=== PATIENT | female | born 1965 | race African-American/Black ===

== ENCOUNTER 2016-03-14 14:46 | Emergency (ER) | payer MEDICAID ==
[~2016-03-14] VITALS: Ht 167.6 cm; Wt 172.4 kg
[~2016-03-14 14:46] MED LIST: ACETAMINOPHEN-1 EAC1 ORAL; ALBUTEROL SULF8.5 GM INH; ALLOPURINOL100 M1 ORAL; AZITHROMYCIN250 MG ORAL; IBUPROFEN600 MG PO; NORCO 5-325 TA1 EACH PO; VALIUM5 MG PO; ZOFRAN ODT4 MG ORAL
[2016-03-14] MEDS ORDERED: DuoNeb 0.5-3(2.5)mg/3ml neb HHN ONE (16:15)
[2016-03-14 16:26] VITALS: BP 121/83
[2016-03-14] MEDS ORDERED: PHENERGAN6.25 MG/5 ORAL (16:37)
[2016-03-14] MEDS ORDERED: ALBUTEROL SULF8.5 GM INH (16:37)
[2016-03-14 17:00] VITALS: BP 125/85
--- NOTE | 2016-03-15 13:01 | Diagnostic Imaging Report ---
Indication: Chest Pain Comparison: 08/24/15 A single view chest radiograph was obtained. Findings: Cardiomediastinal appearance is within normal limits for age. Pulmonary vascularity is appropriate. The diaphragmatic contour is smooth and costophrenic angles are sharp. No pleural effusions are identified. The bones are unremarkable. Impression: No acute findings
--- NOTE | 2016-03-15 14:06 | Emergency Room Report ---
History of Present Illness General Chief Complaint: General Complaint Source: Patient Present Illness [facility] The patient is a 50-year-old female who presented after having increased and dry cough the intermittent nature. The patient reported having a slight amount of blood-tinged after prolonged coughing. Patient had not been having any fever she reported having some fever approximately one-week ago several. She denied sputum production. She had not been vomiting or having any chest pain. Allergies: Coded Allergies: No Known Allergies (Unverified , 08/08/12) Patient History Past Medical History: see triage record Last Menstrual Period: perimenopause Now: No Reviewed Nursing Documentation: PMH: Agreed, PSxH: Agreed Nursing Documentation-PMH Past Medical History: No Stated History Hx Cardiac Problems: Yes - "fluid" near heart Review of Systems All Other Systems: negative except mentioned in HPI Physical Exam Vital Signs Date Time Temp Pulse Resp B/P Pulse Ox O2 Delivery O2 Flow Rate FiO2 03/14/16 15:00 97.9 71 16 121/83 97 Room Air Sp02 EP Interpretation: reviewed, normal General Appearance: no apparent distress, alert, GCS 15, obese Head: atraumatic ENT: normal ENT inspection, hearing grossly normal, normal voice Neck: normal inspection, full range of motion, supple, no bony tend Respiratory: normal inspection, lungs clear, no respiratory distress, no retraction, wheezing Cardiovascular #1: regular rate, rhythm, no edema Gastrointestinal: normal inspection, normal bowel sounds, non tender, soft, no guarding, no hernia Genitourinary: no CVA tenderness Musculoskeletal: normal inspection, back normal, normal range of motion Neurologic: normal inspection, alert, oriented x3, responsive, transmission rebuilder III-XII nml as tested, speech normal Psychiatric: normal inspection, judgement/insight normal, mood/affect normal Skin: normal inspection, normal color, no rash Medical Decision Making Diagnostic Impression: Primary Impression: Bronchitis ER Course Patient presented for cough. Differential diagnosis included but was not limited to bronchitis, pneumonia, pulmonary embolism, pericarditis, asthma, foreign body. A chest x-ray one view interpreted by me showed mild hyperinflation without evident infiltrate.The patient was given a prescription for cough syrup as well for albuterol inhaler. The patient is advised to follow up with primary care doctor in 1-2 days. Patient is advised to return if any worsening condition or if any changes in status that are concerning. Chest X-Ray Diagnostic Results EP Interpretation: Yes Findings: no consolidation, no effusion, no pneumothorax, no acute cardiopulmonary disease Number of Views: 1 Last Vital Signs Date Time Temp Pulse Resp B/P Pulse Ox O2 Delivery O2 Flow Rate FiO2 03/14/16 17:00 97.9 65 18 125/85 98 Room Air Disposition: HOME, SELF-CARE Condition: Stable Scripts Promethazine/Dextromethorphan (Promethazine-Dm Syrup) 473 Ml Syrup 1 TSP ORAL Q4H Y for For Cough, #118 ML 0 Refills Prov: Joe Granados 03/14/16 Albuterol Sulfate* (ALBUTEROL SULFATE MDI*) 8.5 Gm Hfa.aer.ad 2 PUFF INH Q4H Y for wheezing, #1 EA Prov: Joe Granados 03/14/16 Patient Instructions: Acute Bronchitis Joe Granados Mar 15, 2016 14:06
== END 2016-03-14 17:00 | disposition home or self-care (01) ==
LOC: EMR 15:20
DX: J40 Bronchitis, not specified as acute or chronic (principal); R05 Cough; Z78.0 Asymptomatic menopausal state
CPT/HCPCS: 71010; 82962; 94640; 94664; 99283

== ENCOUNTER 2016-06-15 12:47 | Emergency (ER) | payer MEDICAID ==
[~2016-06-15] VITALS: Ht 170.2 cm; Wt 172.4 kg
[~2016-06-15 12:47] MED LIST changes: +PHENERGAN6.25 MG/5 ORAL
[2016-06-15 13:03] VITALS: BP 132/80
[2016-06-15 13:44] LABS: BASOPHILS % (AUTO) 0.7 % (0.0-2.0); EOSINOPHILS % (AUTO) 1.1 % (0.0-3.0); LYMPHOCYTES % (AUTO) 30.8 % (20.0-45.0); MEAN CORPUSCULAR HEMOGLOBIN 28.3 PG (27.0-31.0); MEAN CORPUSCULAR HGB CONC 30.9 G/DL (32.0-36.0); MEAN CORPUSCULAR VOLUME 91 FL (80-99); MEAN PLATELET VOLUME 7.5 FL (6.5-10.1); MONOCYTES % (AUTO) 5.1 % (1.0-10.0); NEUTROPHILS % (AUTO) 62.4 % (45.0-75.0); PLATELET COUNT 253 K/UL (150-450); RED BLOOD COUNT 4.44 M/UL (4.20-5.40); RED CELL DISTRIBUTION WIDTH 13.4 % (11.6-14.8)
[2016-06-15 14:00] LABS: ALANINE AMINOTRANSFERASE 13 U/L (3-33); ALBUMIN/GLOBULIN RATIO 1.2 (1.0-2.7); ANION GAP 15 (5-15); ASPARTATE AMINO TRANSFERASE 11 U/L (5-40); CALCIUM 8.9 mg/dL (8.6-10.2); CARBON DIOXIDE 27 mEQ/L (20-30); CHLORIDE 96 mEQ/L (98-107); CREATININE 0.6 mg/dL (0.5-0.9); GLOMERULAR FILTRATION RATE > 60 mL/min (>60); HEMOLYSIS 0; POTASSIUM 4.3 mEQ/L (3.4-4.9); SODIUM 138 mEQ/L (135-145); TOTAL PROTEIN 6.8 g/dL (6.6-8.7); TROPONIN I < 0.30 ng/mL (<=0.30)
[2016-06-15 14:10] LABS: CKMB 1.6 ng/mL (< 3.8)
[2016-06-15 14:20] VITALS: BP 119/56
[2016-06-15] MEDS ORDERED: PRILOSEC10 M1 ORAL (14:22)
[2016-06-15] MEDS ORDERED: TRUFORM COMPRE1 EAC1 MC (14:40)
[2016-06-15 14:48] VITALS: BP 119/56
--- NOTE | 2016-06-15 15:10 | Emergency Room Report ---
History of Present Illness General Chief Complaint: General Complaint Source: Patient Present Illness HPI 51-year-old female presents to ED for evaluation. Patient referred by PMD to rule out congestive heart failure. Patient has several month history of bilateral ankle swelling and episodes of shortness of breath. Denies shortness of breath at this time. Denies cough. Denies chest pain. Patient is overweight. Denies taking any medications. No aggravating relieving factors. Denies any other associated symptoms Allergies: Coded Allergies: No Known Allergies (Unverified , 08/08/12) Patient History Past Medical History: GERD Past Surgical History: none Pertinent Family History: none Social History: Denies: alcohol use, drug use, smoking Now: No Immunizations: UTD Reviewed Nursing Documentation: PMH: Agreed, PSxH: Agreed Nursing Documentation-PMH Past Medical History: No Stated History Hx Cardiac Problems: Yes - "fluid" near heart Hx Gastrointestinal Problems: Yes - GERD Review of Systems All Other Systems: negative except mentioned in HPI Physical Exam Vital Signs Date Time Temp Pulse Resp B/P Pulse Ox O2 Delivery O2 Flow Rate FiO2 06/15/16 12:55 97.0 64 20 132/80 100 06/15/16 14:20 Room Air Sp02 EP Interpretation: reviewed, normal General Appearance: no apparent distress, alert, GCS 15, non-toxic, obese Head: normocephalic, atraumatic Eyes: bilateral eye PERRL, bilateral eye normal inspection ENT: hearing grossly normal, normal pharynx, no angioedema, normal voice Neck: full range of motion, supple/symm/no masses Respiratory: chest non-tender, lungs clear, normal breath sounds, speaking full sentences Cardiovascular #1: regular rate, rhythm, no edema Cardiovascular #2: 2+ carotid (R), 2+ carotid (L), 2+ radial (R), 2+ radial (L) , 2+ dorsalis pedis (R), 2+ dorsalis pedis (L) Gastrointestinal: normal bowel sounds, non tender, soft, non-distended, no guarding, no rebound Rectal: deferred Genitourinary: normal inspection, no CVA tenderness Musculoskeletal: back normal, gait/station normal, normal range of motion, non- tender, swelling - b/l ankles Neurologic: alert, oriented x3, responsive, motor strength/tone normal, sensory intact, speech normal Psychiatric: judgement/insight normal, memory normal, mood/affect normal, no suicidal/homicidal ideation Reflexes: 3+ bicep (R), 3+ bicep (L), 3+ tricep (R), 3+ tricep (L), 3+ knee (R) , 3+ knee (L) Skin: normal color, no rash, warm/dry, well hydrated Lymphatic: no adenopathy Medical Decision Making Diagnostic Impression: Primary Impression: Pedal edema ER Course Hospital Course 51-year-old female presents to ED for bilateral ankle swelling and episodes of shortness of breath Differential diagnoses include: CHF, VA/unstable angina, arrythmia Clinical course Patient placed on stretcher. After initial history and physical I ordered labs , EKG, chest x-ray. labs reviewed- all electrolytes normal, troponins negative, no leukocytosis, hemoglobin/hematocrit stable, BNP ok EKG - NSR, no acute process Chest x-ray- borderline cardiomegaly, no rib fracture, no pneumothorax, no acute process patient states the swelling has resolved since evaluation. likely pedal edema. Patient can be safely discharged to home pending outpatient followup. I. I feel this is a highly complex case requiring extensive working including EKG/Rhythm strip, Xray/CT/US, Blood/urine lab work, repeat exams while in ED, and administration of strong opiates/narcotics for pain control, admission to hospital or close patient follow up. Diagnosis - pedal edema Stable and discharged to home with Rx compression stockings. Instructed to followup with PMD. Return to ED if symptoms recur or worsen Labs Test 06/15/16 13:35 White Blood Count 6.0 K/UL (4.8-10.8) Red Blood Count 4.44 M/UL (4.20-5.40) Hemoglobin 12.6 G/DL (12.0-16.0) Hematocrit 40.6 % (37.0-47.0) Mean Corpuscular Volume 91 FL (80-99) Mean Corpuscular Hemoglobin 28.3 PG (27.0-31.0) Mean Corpuscular Hemoglobin Concent 30.9 G/DL (32.0-36.0) Red Cell Distribution Width 13.4 % (11.6-14.8) Platelet Count 253 K/UL (150-450) Mean Platelet Volume 7.5 FL (6.5-10.1) Neutrophils (%) (Auto) 62.4 % (45.0-75.0) Lymphocytes (%) (Auto) 30.8 % (20.0-45.0) Monocytes (%) (Auto) 5.1 % (1.0-10.0) Eosinophils (%) (Auto) 1.1 % (0.0-3.0) Basophils (%) (Auto) 0.7 % (0.0-2.0) Sodium Level 138 mEQ/L (135-145) Potassium Level 4.3 mEQ/L (3.4-4.9) Chloride Level 96 mEQ/L (98-107) Carbon Dioxide Level 27 mEQ/L (20-30) Anion Gap 15 (5-15) Blood Urea Nitrogen 11 mg/dL (7-23) Creatinine 0.6 mg/dL (0.5-0.9) Estimat Glomerular Filtration Rate > 60 mL/min (>60) Glucose Level 102 mg/dL (74-106) Calcium Level 8.9 mg/dL (8.6-10.2) Total Bilirubin 0.3 mg/dL (0.0-1.2) Aspartate Amino Transf (AST/SGOT) 11 U/L (5-40) Alanine Aminotransferase (ALT/SGPT) 13 U/L (3-33) Alkaline Phosphatase 66 U/L (35-104) Total Creatine Kinase 141 U/L (26-140) Creatine Kinase MB 1.6 ng/mL (< 3.8) Creatine Kinase MB Relative Index 1.1 Troponin I < 0.30 ng/mL (<=0.30) Pro-B-Type Natriuretic Peptide 79 pg/mL (0-125) Total Protein 6.8 g/dL (6.6-8.7) Albumin 3.8 g/dL (3.5-5.2) Globulin 3.0 g/dL Albumin/Globulin Ratio 1.2 (1.0-2.7) EKG Diagnostic Results Rate: normal Rhythm: NSR ST Segments: no acute changes ASA given to the pt in ED: No Rhythm Strip Diag. Results EP Interpretation: yes Rhythm: NSR, no PVC's, no ectopy Chest X-Ray Diagnostic Results EP Interpretation: Yes Findings: no consolidation, no effusion, no pneumothorax, no acute cardiopulmonary disease Number of Views: 1 Last Vital Signs Date Time Temp Pulse Resp B/P Pulse Ox O2 Delivery O2 Flow Rate FiO2 06/15/16 14:48 97.0 66 18 119/56 100 Room Air Status: improved Disposition: HOME, SELF-CARE Condition: Stable Scripts Comp.stocking,Knee,Regular,Med (Truform Compression Stocking) 1 Each Each 1 EACH , #2 Prov: JOHN MARTINES M.D. 06/15/16 Patient Instructions: Peripheral Edema JOHN MARTINES M.D. Jun 15, 2016 15:10
--- NOTE | 2016-06-15 15:36 | Diagnostic Imaging Report ---
Indication: SOB Technique: One view of the chest Comparison: March 14, 2016 Findings: The heart is borderline enlarged. Lungs and pleural spaces are clear. There is no significant change Impression: Borderline cardiomegaly. No acute process
--- NOTE | 2016-06-16 20:26 | Cardiology Report ---
APPROVED REPORT EKG Measurement Heart [id number] Normal sinus rhythm Normal ECG
== END 2016-06-15 14:50 | disposition home or self-care (01) ==
LOC: EMR 13:06
DX: R60.0 Localized edema (principal); R06.02 Shortness of breath; K21.9 Gastro-esophageal reflux disease without esophagitis
CPT/HCPCS: 36415; 71010; 80053; 82550; 82553; 83880; 84484; 85025; 93005; 99283

== ENCOUNTER 2016-09-24 09:14 | Emergency (ER) | payer MEDICAID ==
[~2016-09-24] VITALS: Ht 170.2 cm; Wt 178.3 kg
[~2016-09-24 09:14] MED LIST changes: +PRILOSEC10 M1 ORAL; +TRUFORM COMPRE1 EAC1 MC
--- NOTE | 2016-09-24 09:46 | Emergency Room Report ---
History of Present Illness General Chief Complaint: Dyspnea/Respdistress Source: Patient Present Illness HPI Patient is a 51-year-old female presented having acute onset of left-sided chest pain. The patient was having worsening symptoms with a left decubitus position. Patient had no exertional component. She reports having no pain with deep breath. She denies any leg pain or swelling. She denies any abdominal pain. She stated she was nauseated last night. She had not been vomiting or having diarrhea. She denied black or bloody stools.She denied any cough or fever Allergies: Coded Allergies: No Known Allergies (Unverified , 08/08/12) Patient History Past Medical History: see triage record Now: No Reviewed Nursing Documentation: PMH: Agreed, PSxH: Agreed Nursing Documentation-PMH Hx Cardiac Problems: Yes - "fluid" near heart Hx Gastrointestinal Problems: Yes - GERD Review of Systems All Other Systems: negative except mentioned in HPI Physical Exam Vital Signs Date Time Temp Pulse Resp B/P Pulse Ox O2 Delivery O2 Flow Rate FiO2 09/24/16 09:16 97.3 78 19 115/78 98 Room Air General Appearance: well appearing, no apparent distress, alert, GCS 15, obese Head: normocephalic, atraumatic ENT: hearing grossly normal, normal voice Neck: full range of motion, supple Respiratory: no respiratory distress, speaking full sentences Cardiovascular #1: normal inspection, regular rate, rhythm, no edema Gastrointestinal: normal inspection, normal bowel sounds, soft, no mass Musculoskeletal: normal inspection, back normal, digits/nails normal, no calf tenderness Neurologic: normal inspection, alert, oriented x3, responsive, directory operator III-XII nml as tested, normal gait Psychiatric: mood/affect normal Skin: normal inspection, normal color, no rash Medical Decision Making Diagnostic Impression: Primary Impression: GERD with esophagitis ER Course Patient presented for chest pain. Differential diagnosis included but was not limited to acute coronary syndrome, pulmonary embolism, pneumonia, aortic dissection, shingles, pneumothorax, aortic dissection, esophageal rupture, pericarditis. The patient's symptoms are consistent with esophageal reflux. Patient was given Mylanta. Chest x-ray was ordered to evaluate for possible pulmonary disease.Chest x-ray one view interpreted by me showed normal cardiac size without evident infiltrate. The patient appears to have improvement in symptoms of with Mylanta. The patient is advised to return she began feeling any worse. The patient's symptoms are not consistent with cardiac or pulmonary etiology. This appears to be related to gastroesophageal reflux disease. Patient was given prescription for acid blockers. EKG Diagnostic Results Rate: normal Rhythm: NSR - 72 ST Segments: no acute changes Last Vital Signs Date Time Temp Pulse Resp B/P Pulse Ox O2 Delivery O2 Flow Rate FiO2 09/24/16 09:16 97.3 78 19 115/78 98 Room Air Status: improved Disposition: HOME, SELF-CARE Condition: Stable Scripts Omeprazole (OMEPRAZOLE) 20 Mg Tablet.dr 20 MG ORAL DAILY, #30 TAB Prov: Joe Granados 09/24/16 Omeprazole Magnesium (PRILOSEC) 10 Mg Suspdr.pkt 10 MG ORAL DAILY, #30 PACKET Prov: Joe Granados 09/24/16 Joe Granados Sep 24, 2016 09:46
[2016-09-24 10:03] VITALS: BP 107/74
[2016-09-24] MEDS ORDERED: PRILOSEC10 M1 ORAL (10:30)
[2016-09-24 10:40] VITALS: BP 119/68
[2016-09-24] MEDS ORDERED: OMEPRAZOLE20 M3 ORAL (10:52)
--- NOTE | 2016-09-24 10:55 | Diagnostic Imaging Report ---
Indication: Chest pain Technique: XRAY CHEST 1 V Comparison: 06/15/16 Findings: The cardiomediastinal silhouette is within normal limits. There is no focal consolidation, pneumothorax or pleural effusion. Osseous structures demonstrate no acute abnormality. Impression: No acute cardiopulmonary disease.
== END 2016-09-24 10:40 | disposition home or self-care (01) ==
LOC: EMR 09:40
DX: K21.0 Gastro-esophageal reflux disease with esophagitis (principal)
CPT/HCPCS: 71010; 93005; 99284

== ENCOUNTER 2017-05-03 11:17 | Emergency (ER) | payer MEDICAID ==
[~2017-05-03] VITALS: Ht 172.7 cm; Wt 165.6 kg
[~2017-05-03 11:17] MED LIST changes: +OMEPRAZOLE20 M3 ORAL
[2017-05-03 11:21] VITALS: BP 119/65
[2017-05-03] MEDS ORDERED: Albuterol/Ipratropium 3ml neb HHN ONE (12:00)
[2017-05-03] MEDS ORDERED: ZITHROMAX250 MG ORAL (12:23)
[2017-05-03] MEDS ORDERED: PROMETHAZINE-D118 ML ORAL (12:23)
--- NOTE | 2017-05-03 12:25 | Diagnostic Imaging Report ---
Indication: Shortness of breath Technique: XRAY Chest 1v Comparison: 09/24/2016 Findings: Limited exam due to underpenetration, likely related to patient's body habitus. Heart size and mediastinal contours are stable. There is mild cardiomegaly. There is no focal airspace consolidation, pleural effusion or pneumothorax. No acute osseous abnormality appreciated. Impression: Limited exam due to underpenetration. No radiographic evidence of acute cardiopulmonary disease. Cardiomegaly.
[2017-05-03 12:50] VITALS: BP 114/72
[2017-05-03] MEDS ORDERED: AZITHROMYCIN250 MG ORAL (13:00)
--- NOTE | 2017-05-05 14:45 | Emergency Room Report ---
History of Present Illness General Chief Complaint: Sore Throat Source: Patient Present Illness HPI Patient 51 female who presented after increased cough for several weeks. The patient any chest pain. She denied for shortness of breath. The patient had nonproductive cough.She reports having associated sore throat. Allergies: Coded Allergies: No Known Allergies (Unverified , 08/08/12) Patient History Past Medical History: see triage record Last Menstrual Period: 03/20 Now: No : 5 Para: 2 Reviewed Nursing Documentation: PMH: Agreed, PSxH: Agreed Nursing Documentation-PMH Hx Cardiac Problems: Yes - "fluid" near heart Hx Gastrointestinal Problems: Yes - GERD Review of Systems All Other Systems: negative except mentioned in HPI Physical Exam Vital Signs Date Time Temp Pulse Resp B/P (MAP) Pulse Ox O2 Delivery O2 Flow Rate FiO2 05/03/17 11:21 97.5 75 18 119/65 97 Room Air 97.5 05/03/17 12:20 21 General Appearance: well appearing, no apparent distress, alert, GCS 15 Head: normocephalic, atraumatic ENT: hearing grossly normal, normal voice Neck: full range of motion, supple Respiratory: no respiratory distress, speaking full sentences, wheezing Cardiovascular #1: normal peripheral pulses, regular rate, rhythm Musculoskeletal: normal inspection, back normal, no calf tenderness Neurologic: normal gait Psychiatric: mood/affect normal Skin: no rash Medical Decision Making Diagnostic Impression: Primary Impression: Bronchitis ER Course Patient presented for cough. Differential diagnosis included but was not limited to bronchitis, pneumonia, pulmonary embolism, pericarditis, asthma, foreign body. Patient has a benign exam and does not appear to require any further imaging or laboratory testing at this time. Patient given breathing treatment with improvement in her symptoms. The patient is advised to follow up with primary care doctor in 1-2 days. Patient is advised to return if any worsening condition or if any changes in status that are concerning. This report is dictated with [employer] package winder software which may occasionally lead to discrepancies related to use of this software. Last Vital Signs Date Time Temp Pulse Resp B/P (MAP) Pulse Ox O2 Delivery O2 Flow Rate FiO2 05/03/17 12:50 97.3 77 16 114/72 97 Room Air 05/03/17 12:30 21 Status: improved Disposition: HOME, SELF-CARE Condition: Improved Scripts Azithromycin* (ZITHROMAX*) 250 Mg Tablet 250 MG ORAL DAILY, #6 TAB 0 Refills Take two tablets by mouth today, then take one tablet by mouth daily for four days Prov: Joe Granados 05/03/17 D-Methorphan Hb/Prometh Hcl* (PROMETHAZINE-DM SYRUP*) 118 Ml Syrup 5 ML ORAL Q4H Y for For Cough, #120 ML 0 Refills Prov: Joe Granados 05/03/17 Referrals: LEBRON GREWAL,REFERRING (PCP) Patient Instructions: Acute Bronchitis Joe Granados May 05, 2017 14:45
== END 2017-05-03 12:50 | disposition home or self-care (01) ==
LOC: EMR 11:35
DX: J40 Bronchitis, not specified as acute or chronic (principal); K21.9 Gastro-esophageal reflux disease without esophagitis
CPT/HCPCS: 71045; 94640; 99283; J7620

== ENCOUNTER 2017-05-30 11:31 | Emergency (ER) | payer MEDICAID ==
[~2017-05-30] VITALS: Ht 167.6 cm; Wt 161.9 kg
[~2017-05-30 11:31] MED LIST changes: +PROMETHAZINE-D118 ML ORAL; +ZITHROMAX250 MG ORAL
[2017-05-30] MEDS ORDERED: IBUPROFEN600 MG ORAL (11:58)
[2017-05-30] MEDS ORDERED: ROBAXIN-750750 MG PO (11:58)
[2017-05-30] MEDS ORDERED: LIDOCAINE700 M1 TP (11:58)
[2017-05-30] MEDS ORDERED: Ketorolac 30mg Inj IM ONE (12:00)
[2017-05-30] MEDS ORDERED: Methocarbamol 750mg tab ORAL ONE (12:00)
--- NOTE | 2017-05-30 12:02 | Emergency Room Report ---
History of Present Illness General Chief Complaint: Back Pain-No Injury Source: Patient Present Illness HPI 52-year-old female, chronic back pain, asthma, p/w back pain 6 months. Patient states pain is in left upper back and left shoulder. Patient states that she uses her left shoulder a lot for work, Movement worsens pain. There are no alleviating factors. Patient has experienced this similar pain in the past. Denies trauma. Denies extremity weakness/numbness, no bowel/bladder retention or incontinence, saddle anesthesia. Denies fever, chills, abdominal pain, n/v, dysuria/hematuria. Allergies: Coded Allergies: No Known Allergies (Unverified , 08/08/12) Patient History Past Medical History: see triage record Past Surgical History: none Pertinent Family History: none Last Menstrual Period: 3-8 Now: No Reviewed Nursing Documentation: PMH: Agreed, PSxH: Agreed Nursing Documentation-PMH Hx Cardiac Problems: Yes - "fluid" near heart Hx Gastrointestinal Problems: Yes - GERD Review of Systems All Other Systems: negative except mentioned in HPI Physical Exam Vital Signs Date Time Temp Pulse Resp B/P (MAP) Pulse Ox O2 Delivery O2 Flow Rate FiO2 05/30/17 11:38 97.5 65 18 115/68 97 Room Air 97.5 Sp02 EP Interpretation: reviewed, normal General Appearance: normal inspection, well appearing, no apparent distress, alert, GCS 15, non-toxic Head: normocephalic, atraumatic Eyes: bilateral eye normal inspection, bilateral eye PERRL, bilateral eye EOMI ENT: normal ENT inspection, normal pharynx, normal voice, moist mucus membranes Neck: normal inspection, full range of motion, supple Respiratory: normal inspection, lungs clear, normal breath sounds, no respiratory distress, no retraction, no wheezing, speaking full sentences, chest symmetrical Cardiovascular #1: normal inspection, regular rate, rhythm, no edema, normal capillary refill Cardiovascular #2: 2+ radial (R), 2+ radial (L) Gastrointestinal: normal inspection, non tender, soft, non-distended, no guarding Musculoskeletal: other - Soreness/tenderness along left deltoid musculature, full range of motion all extremities, paraspinal upper thoracic tenderness, no midline tenderness, full range of motion Neurologic: normal inspection, alert, oriented x3, responsive, motor strength/ tone normal, sensory intact, normal gait, speech normal Psychiatric: normal inspection, judgement/insight normal, memory normal Skin: normal inspection, normal color, no rash, warm/dry, well hydrated, normal turgor Medical Decision Making Diagnostic Impression: Primary Impression: Chronic back pain greater than 3 months duration ER Course 52-year-old female p/w back pain DDX: Likely musculoskeletal back pain vs. muscular strain Lumbar fracture is unlikely given patients age, no midline tenderness, no history of trauma, and that patient is ambulatory. Therefore, at this time no imaging is indicated Serious diagnoses such as cord compression, epidural abscess is unlikely in this patient given the clinical scenario and abscess of neurological symptoms or findings. Patient appears nontoxic. Plan: Toradol, robaxin ER course: Patient has remained nontoxic appearing and ambulatory in the ED. Pain improved w/ medications Disposition: Patient will be discharged to home with prescription of motrin and robaxin. And lidocaine patches Patient cautioned of the effects of robaxin including possible impairment of physical or mental abilities. Patient was instructed to refrain from operating machinery or driving. Patient is also cautioned on the GI effects of motrin and to take sparingly. Patient verbalized understanding. Strict precautions discussed with patient on when to emergently return to the ED which includes severe/worsening back pain, weakness/numbness, urinary retention/incontinence, fever or chills, which may indicate severe illness. Patient is to follow up with their PMD within 5 days. Patient agrees with plan. Please note that this Emergency Department Report was dictated using [employer] marketing manager technology software, occasionally this can lead to erroneous entry secondary to interpretation by the dictation equipment. Last Vital Signs Date Time Temp Pulse Resp B/P (MAP) Pulse Ox O2 Delivery O2 Flow Rate FiO2 05/30/17 11:38 97.5 65 18 115/68 97 Room Air 97.5 Disposition: HOME, SELF-CARE Condition: Improved Scripts Ibuprofen* (MOTRIN*) 600 Mg Tablet 600 MG ORAL Q8H Y for For Pain, #30 TAB 0 Refills Prov: Retino,Clairose M.D. 05/30/17 Lidocaine (Lidocaine) 1 Each Adh..patch 700 MG TP EVERY 12 HOURS, #30 PATCH Prov: Retino,Clairose M.D. 05/30/17 Methocarbamol* (ROBAXIN-750*) 750 Mg Tablet 750 MG PO QID, #28 TAB 0 Refills Prov: Retino,Clairose M.D. 05/30/17 Patient Instructions: Back Pain, Adult Chance Mesa M.D. May 30, 2017 12:02
[2017-05-30 12:12] VITALS: BP 115/68
[2017-05-30 12:28] VITALS: BP 105/68
== END 2017-05-30 12:30 | disposition home or self-care (01) ==
LOC: EMR 11:52
DX: M54.6 Pain in thoracic spine (principal); G89.29 Other chronic pain
CPT/HCPCS: 96372; 99284; J1885

== ENCOUNTER 2017-07-16 11:06 | Emergency (ER) | payer MEDICAID ==
[~2017-07-16] VITALS: Ht 170.2 cm; Wt 163.3 kg
[~2017-07-16 11:06] MED LIST changes: +IBUPROFEN600 MG ORAL; +LIDOCAINE700 M1 TP; +ROBAXIN-750750 MG PO
[2017-07-16 11:27] VITALS: BP 120/51
--- NOTE | 2017-07-16 11:32 | Emergency Room Report ---
History of Present Illness General Chief Complaint: General Complaint Source: Patient Present Illness HPI Patient presents with complaints that she saw blood in her stool yesterday and today Denies any weakness or dizziness Denies any associated abdominal pain with this denies any rectal pain she essentially saw the blood in the stool in the toilet Denies any flank pain denies any vomiting or diarrhea denies any recent constipation Allergies: Coded Allergies: No Known Allergies (Unverified , 08/08/12) Patient History Past Medical History: see triage record Pertinent Family History: none Last Menstrual Period: June 18 Now: No Reviewed Nursing Documentation: PMH: Agreed; PSxH: Agreed Nursing Documentation-PMH Past Medical History: No Stated History Hx Cardiac Problems: Yes - "fluid" near heart Hx Asthma: Yes Hx Gastrointestinal Problems: Yes - GERD Review of Systems All Other Systems: negative except mentioned in HPI Physical Exam Vital Signs Date Time Temp Pulse Resp B/P (MAP) Pulse Ox O2 Delivery O2 Flow Rate FiO2 07/16/17 11:12 97.8 77 16 118/63 97 Room Air 97.9 Sp02 EP Interpretation: reviewed, normal General Appearance: well appearing, no apparent distress Head: normocephalic, atraumatic Eyes: bilateral eye PERRL, bilateral eye EOMI ENT: hearing grossly normal, normal pharynx, TMs + canals normal, uvula midline Neck: full range of motion, supple, no meningismus, no bony tend Respiratory: lungs clear, normal breath sounds, no rhonchi, no respiratory distress, no retraction, no accessory muscle use Cardiovascular #1: normal peripheral pulses, regular rate, rhythm, no edema, no gallop, no JVD, no murmur Gastrointestinal: normal bowel sounds, non tender, soft, no mass, no organomegaly, non-distended, no guarding, no hernia, no pulsatile mass, no rebound Genitourinary: no CVA tenderness Musculoskeletal: normal inspection Neurologic: oriented x3, responsive, check services clerk III-XII nml as tested, motor strength/ tone normal, sensory intact Psychiatric: mood/affect normal Skin: normal color, no rash, warm/dry, palpation normal Lymphatic: normal inspection, no adenopathy Medical Decision Making Diagnostic Impression: Primary Impression: Blood in stool ER Course Multiple differentials considered including but not limited to diverticulosis gastrointestinal hemorrhage, hemorrhoids Patient's blood work at this time shows stable hemoglobin Patient does not have any active signs of bleeding and is otherwise hemodynamically stable for close outpatient follow-up Labs Test 07/16/17 11:35 White Blood Count 5.6 K/UL (4.8-10.8) Red Blood Count 4.49 M/UL (4.20-5.40) Hemoglobin 13.2 G/DL (12.0-16.0) Hematocrit 40.0 % (37.0-47.0) Mean Corpuscular Volume 89 FL (80-99) Mean Corpuscular Hemoglobin 29.4 PG (27.0-31.0) Mean Corpuscular Hemoglobin Concent 33.0 G/DL (32.0-36.0) Red Cell Distribution Width 12.7 % (11.6-14.8) Platelet Count 276 K/UL (150-450) Mean Platelet Volume 7.8 FL (6.5-10.1) Neutrophils (%) (Auto) 55.3 % (45.0-75.0) Lymphocytes (%) (Auto) 36.5 % (20.0-45.0) Monocytes (%) (Auto) 5.1 % (1.0-10.0) Eosinophils (%) (Auto) 1.9 % (0.0-3.0) Basophils (%) (Auto) 1.2 % (0.0-2.0) Sodium Level 140 MMOL/L (136-145) Potassium Level 5.0 MMOL/L (3.5-5.1) Chloride Level 106 MMOL/L (98-107) Carbon Dioxide Level 28 MMOL/L (21-32) Anion Gap 6 mmol/L (5-15) Blood Urea Nitrogen 11 mg/dL (7-18) Creatinine 0.7 MG/DL (0.55-1.30) Estimat Glomerular Filtration Rate > 60 mL/min (>60) Glucose Level 102 MG/DL (74-106) Calcium Level 8.5 MG/DL (8.5-10.1) Last Vital Signs Date Time Temp Pulse Resp B/P (MAP) Pulse Ox O2 Delivery O2 Flow Rate FiO2 07/16/17 11:27 97.9 78 20 120/51 99 Room Air 97.9 Status: improved Disposition: HOME, SELF-CARE Condition: Improved Scripts Famotidine (PEPCID AC) 20 Mg Tablet 20 MG PO DAILY, #12 TAB Prov: Elizabeth Brooks DO 07/16/17 Additional Instructions: Patient is provided with the discharge instructions notified to follow up with primary doctor in the next 2-3 days otherwise return to the er with any worsening symptoms. Please note that this report is being documented using [employer]on technology. This can lead to erroneous entry secondary to incorrect interpretation by the dictating instrument. Elizabeth Brooks DO July 16, 2017 11:32
[2017-07-16 11:46] LABS: BASOPHILS % (AUTO) 1.2 % (0.0-2.0); EOSINOPHILS % (AUTO) 1.9 % (0.0-3.0); HEMOGLOBIN 13.2 G/DL (12.0-16.0); LYMPHOCYTES % (AUTO) 36.5 % (20.0-45.0); MEAN CORPUSCULAR VOLUME 89 FL (80-99); MONOCYTES % (AUTO) 5.1 % (1.0-10.0); NEUTROPHILS % (AUTO) 55.3 % (45.0-75.0); PLATELET COUNT 276 K/UL (150-450); RED BLOOD COUNT 4.49 M/UL (4.20-5.40); RED CELL DISTRIBUTION WIDTH 12.7 % (11.6-14.8); WHITE BLOOD COUNT 5.6 K/UL (4.8-10.8)
[2017-07-16 11:57] LABS: ANION GAP 6 mmol/L (5-15); BLOOD UREA NITROGEN 11 mg/dL (7-18); CALCIUM 8.5 MG/DL (8.5-10.1); CARBON DIOXIDE 28 MMOL/L (21-32); CHLORIDE 106 MMOL/L (98-107); CREATININE 0.7 MG/DL (0.55-1.30); SODIUM 140 MMOL/L (136-145)
[2017-07-16] MEDS ORDERED: PEPCID AC20 M2 PO (13:24)
[2017-07-16 13:45] VITALS: BP 109/74
== END 2017-07-16 13:45 | disposition home or self-care (01) ==
LOC: EMR 11:47
DX: K92.1 Melena (principal); K21.9 Gastro-esophageal reflux disease without esophagitis; J45.909 Unspecified asthma, uncomplicated
CPT/HCPCS: 36415; 80048; 85025; 99283

== ENCOUNTER 2017-12-21 17:26 | Emergency (ER) | payer MEDICAID ==
[~2017-12-21] VITALS: Ht 172.7 cm; Wt 156.5 kg
[~2017-12-21 17:26] MED LIST changes: +PEPCID AC20 M2 PO
[2017-12-21] MEDS ORDERED: MELOXICAM15 MG PO (17:59)
[2017-12-21] MEDS ORDERED: Ketorolac 30mg Inj IM ONE (18:00)
--- NOTE | 2017-12-21 18:03 | Emergency Room Report ---
History of Present Illness General Chief Complaint: General Complaint Source: Patient Present Illness HPI Patient 52-year-old female who presented after increased bilateral knee pain. The patient reports having prior episodes of pain to her other joints. Patient prior history of osteoporosis. She is currently taking vitamin D. The she denies any fever. She denies any recent trauma. The patient reports having increased pain with movements. She had prior history of gout and is currently taking allopurinol Allergies: Coded Allergies: No Known Allergies (Unverified , 08/08/12) Patient History Reviewed Nursing Documentation: PMH: Agreed; PSxH: Agreed Nursing Documentation-PMH Past Medical History: No History, Except For Hx Cardiac Problems: No - Gout, Osteoporosis Hx Hypertension: No Hx Pacemaker: No Hx Asthma: Yes Hx COPD: No Hx Diabetes: No Hx Cancer: No Hx Gastrointestinal Problems: Yes - GERD Hx Dialysis: No History Of Psychiatric Problem: Yes - Anxiety Hx Neurological Problems: No Hx Cerebrovascular Accident: No Hx Seizures: No Review of Systems All Other Systems: negative except mentioned in HPI Physical Exam Vital Signs Date Time Temp Pulse Resp B/P (MAP) Pulse Ox O2 Delivery O2 Flow Rate FiO2 12/21/17 17:34 98.9 74 16 128/85 97 Room Air 99.0 General Appearance: well appearing, no apparent distress, alert, GCS 15, obese Head: normocephalic, atraumatic ENT: hearing grossly normal, normal voice Neck: full range of motion, supple Respiratory: no respiratory distress, speaking full sentences Cardiovascular #1: normal inspection, regular rate, rhythm Gastrointestinal: normal inspection Musculoskeletal: normal inspection, back normal, digits/nails normal, normal range of motion, no calf tenderness Neurologic: normal inspection, alert, oriented x3, responsive, social contact worker III-XII nml as tested, normal gait Psychiatric: mood/affect normal Skin: no rash Medical Decision Making Diagnostic Impression: Primary Impression: Arthritis ER Course Patient presented for knee pain. Differential diagnosis included was not limited to popliteal aneurysm, arthritis, dislocation, ligamentous injury, septic joint among others. Patient has a benign exam and does not appear to require any further imaging or laboratory testing at this time. The patient appears to have exacerbation of chronic arthritis. The patient was given Toradol intramuscularly. She is given prescription for meloxicam. She is advised follow-up with her primary care physician for reevaluation.The patient is advised to follow up with primary care doctor in 2-3 days. Patient is advised to return if any worsening condition or if any changes in status that are concerning. This report is dictated with Pley teacher vocal software which may occasionally lead to discrepancies related to use of this software. Last Vital Signs Date Time Temp Pulse Resp B/P (MAP) Pulse Ox O2 Delivery O2 Flow Rate FiO2 12/21/17 17:34 98.9 74 16 128/85 97 Room Air 99.0 Status: improved Disposition: HOME, SELF-CARE Condition: Stable Scripts Meloxicam* (MELOXICAM*) 15 Mg Tablet 15 MG PO DAILY, #30 TAB Prov: Joe Granados MD 12/21/17 Patient Instructions: Arthritis Joe Granados MD Dec 21, 2017 18:03
[2017-12-21 18:09] VITALS: BP_SYST 128; BP_SYST 131; BP_DIAS 79; BP_DIAS 85
== END 2017-12-21 18:10 | disposition home or self-care (01) ==
LOC: EMR 18:10
DX: M17.0 Bilateral primary osteoarthritis of knee (principal); M81.0 Age-related osteoporosis without current pathological fracture; M25.562 Pain in left knee; M25.561 Pain in right knee; K21.9 Gastro-esophageal reflux disease without esophagitis; F41.9 Anxiety disorder, unspecified; Z79.899 Other long term (current) drug therapy
CPT/HCPCS: 96372; 99284; J1885

== ENCOUNTER 2018-04-06 11:51 | Emergency (ER) | payer MEDICAID ==
[~2018-04-06] VITALS: Ht 170.2 cm; Wt 169.2 kg
[~2018-04-06 11:51] MED LIST changes: +MELOXICAM15 MG PO
--- NOTE | 2018-04-06 12:20 | Emergency Room Report ---
History of Present Illness General Chief Complaint: Dizziness Source: Patient (Spencer Griffith) Present Illness HPI 52-year-old female patient presents the ER complaining of dizziness times a few hours. Reports she went to stand up earlier today and she felt dizzy when she stood up. Denies symptoms currently in the ER. Reports she can feel symptoms after getting out of the shower. Reports nausea during this time. Denies vomiting. Denies travel outside the country. Denies diarrhea. Denies history of heart disease or CHF. Denies history of stroke. Denies chest pain, shortness of breath, abdominal pain. Denies photophobia or phonophobia. Denies other aggravating or relieving factors. Denies history of syncopal episodes. Denies calf pain. Reports symptoms began after taking Meloxicam this morning for her arthritis. Denies history of similar symptoms in the past. (Spencer Griffith) Allergies: Coded Allergies: No Known Allergies (Unverified , 08/08/12) Patient History Past Medical History: see triage record Now: No Reviewed Nursing Documentation: PMH: Agreed; PSxH: Agreed (Spencer Griffith) Nursing Documentation-PMH Hx Cardiac Problems: No - Gout, Osteoporosis Hx Hypertension: No Hx Pacemaker: No Hx Asthma: Yes Hx COPD: No Hx Diabetes: No Hx Cancer: No Hx Gastrointestinal Problems: Yes - GERD Hx Dialysis: No Hx Neurological Problems: No Hx Cerebrovascular Accident: No Hx Seizures: No (Spencer Griffith) Review of Systems All Other Systems: negative except mentioned in HPI (Spencer Griffith) Physical Exam Vital Signs Date Time Temp Pulse Resp B/P (MAP) Pulse Ox O2 Delivery O2 Flow Rate FiO2 04/06/18 12:00 98.2 70 16 116/65 98 Room Air Sp02 EP Interpretation: reviewed, normal General Appearance: well appearing, no apparent distress, alert, GCS 15, non- toxic Head: normocephalic, atraumatic Eyes: bilateral eye normal inspection, bilateral eye PERRL ENT: hearing grossly normal, normal pharynx, no angioedema, normal voice, uvula midline, moist mucus membranes Neck: full range of motion Respiratory: lungs clear, normal breath sounds, no rhonchi, no respiratory distress, no accessory muscle use, no wheezing, speaking full sentences Cardiovascular #1: regular rate, rhythm, no edema, normal capillary refill Cardiovascular #2: 2+ radial (R), 2+ radial (L) Musculoskeletal: back normal, digits/nails normal, gait/station normal, normal range of motion, non-tender, no calf tenderness, Roseann's Sign negative Neurologic: alert, oriented x3, responsive, regional account manager III-XII nml as tested, motor strength/tone normal, sensory intact, cerebellar normal, normal gait, speech normal Psychiatric: mood/affect normal Skin: no rash, normal turgor (Spencer Griffith) Medical Decision Making PA Attestation Dr. Cameron is my supervising Physician whom patient management has been discussed with. (Spencer Griffith) Diagnostic Impression: Primary Impression: Dizziness Additional Impression: Yeast infection ER Course Pt. presents to the ED c/o dizziness. Ddx considered but are not limited to orthostatic dizziness, vertigo, hypoglycemia, electrolyte abnormality, arrhythmia, medication side effect, anemia, . No signs or symptoms associated with central vertigo, cranial nerves intact as tested, no focal neuro deficits, patient denies symptoms currently, does not require CT head. Vital signs: are WNL, pt. is afebrile ER COURSE: Physical exam benign. CXR shows no signs of acute disease. EKG shows no ST elevation or afib, low suspicion for TN. Patient denies chest pain or SOB, does not require cardiac workup at this time. CBC and CMP unremarkable, no signs of anemia, H&H WNL, no electrolyte or glucose abnormalities Lipase WNL UA shows positive yeast, will treat with fluconazole. Urine negative All laboratory testing and imaging at this time appear within normal limits, signs and symptoms consistent with possible orthostatic dizziness. Advised patient to drink plenty of fluids. Follow-up with primary care provider for further testing and treatment. Will provide patient with meclizine at discharge. ER precautions given. DISCHARGE: Rx provided for Meclizine. At this time pt is stable for d/c to home. Patient is resting comfortably, in no acute distress, nontoxic appearing, talking without difficulty. Patient to take medications as instructed Will provide with patient care instructions and any necessary prescriptions. Care plan and follow-up instructions provided. Patient instructed to follow-up with primary care provider in 3 - 5 days. Patient questions asked and answered. Patient reports understanding and agreement to treatment plan. ER precautions given. Patient instructed to return to ER immediately for any new or worsening of symptoms including but not limited to increasing SOB, persistent fever, chest pain, intractable vomiting. - Please note that this Emergency Department Report was dictated using Ripple TVresistor inspector technology software, occasionally this can lead to erroneous entry secondary to interpretation by the dictation equipment. Labs Test 04/06/18 12:45 04/06/18 12:55 White Blood Count 4.2 K/UL (4.8-10.8) Red Blood Count 4.56 M/UL (4.20-5.40) Hemoglobin 13.3 G/DL (12.0-16.0) Hematocrit 41.2 % (37.0-47.0) Mean Corpuscular Volume 91 FL (80-99) Mean Corpuscular Hemoglobin 29.2 PG (27.0-31.0) Mean Corpuscular Hemoglobin Concent 32.2 G/DL (32.0-36.0) Red Cell Distribution Width 13.0 % (11.6-14.8) Platelet Count 200 K/UL (150-450) Mean Platelet Volume 8.4 FL (6.5-10.1) Neutrophils (%) (Auto) 64.6 % (45.0-75.0) Lymphocytes (%) (Auto) 27.9 % (20.0-45.0) Monocytes (%) (Auto) 5.3 % (1.0-10.0) Eosinophils (%) (Auto) 1.3 % (0.0-3.0) Basophils (%) (Auto) 0.9 % (0.0-2.0) Sodium Level 141 MMOL/L (136-145) Potassium Level 4.6 MMOL/L (3.5-5.1) Chloride Level 106 MMOL/L (98-107) Carbon Dioxide Level 26 MMOL/L (21-32) Anion Gap 9 mmol/L (5-15) Blood Urea Nitrogen 12 mg/dL (7-18) Creatinine 0.6 MG/DL (0.55-1.30) Estimat Glomerular Filtration Rate > 60 mL/min (>60) Glucose Level 101 MG/DL (74-106) Calcium Level 8.3 MG/DL (8.5-10.1) Total Bilirubin 0.4 MG/DL (0.2-1.0) Aspartate Amino Transf (AST/SGOT) 19 U/L (15-37) Alanine Aminotransferase (ALT/SGPT) 29 U/L (12-78) Alkaline Phosphatase 75 U/L (46-116) Total Protein 7.3 G/DL (6.4-8.2) Albumin 3.1 G/DL (3.4-5.0) Globulin 4.2 g/dL Albumin/Globulin Ratio 0.7 (1.0-2.7) Lipase 222 U/L (73-393) Urine Color Pale yellow Urine Appearance Clear Urine pH 6 (4.5-8.0) Urine Specific Harper 1.005 (1.005-1.035) Urine Protein Negative (NEGATIVE) Urine Glucose (UA) Negative (NEGATIVE) Urine Ketones Negative (NEGATIVE) Urine Blood 5+ (NEGATIVE) Urine Nitrite Negative (NEGATIVE) Urine Bilirubin Negative (NEGATIVE) Urine Urobilinogen Normal MG/DL (0.0-1.0) Urine Leukocyte Esterase Negative (NEGATIVE) Urine RBC 2-4 /HPF (0 - 2) Urine WBC 0-2 /HPF (0 - 2) Urine Squamous Epithelial Cells Few /LPF (NONE/OCC) Urine Bacteria Few /HPF (NONE) Urine Yeast Occasional /HPF (NONE) Urine HCG, Qualitative Negative (NEGATIVE) (Spencer Griffith P.A.) EKG Diagnostic Results Rate: normal Rhythm: NSR ST Segments: no acute changes ASA given to the pt in ED: No PA Scribe Text Rodrigo Griffith PA-C (Spencer Griffith P.A.) Rhythm Strip Diag. Results EP Interpretation: yes Rate: 64 Rhythm: NSR, no PVC's, no ectopy PA Scribe Text Rodrigo Griffith PA-C (Spencer Griffith P.A.) Chest X-Ray Diagnostic Results Chest X-Ray Diagnostic Results : Electronically Signed by: P A documentation of Xray reviewed by me and is accurate, Jeronimo Cameron MD (Jeronimo Cameron MD) Last Vital Signs Date Time Temp Pulse Resp B/P (MAP) Pulse Ox O2 Delivery O2 Flow Rate FiO2 04/06/18 12:00 98.2 70 16 116/65 98 Room Air Status: improved (Spencer Griffith P.A.) Disposition: HOME, SELF-CARE Condition: Stable Scripts Meclizine Hcl* (MECLIZINE*) 25 Mg Tablet 25 MG ORAL THREE TIMES A DAY, #15 TAB Prov: Spencer Griffith 04/06/18 Patient Instructions: Dizziness, Vaginal Yeast Infection, Adult Additional Instructions: Followup with primary care provider in 3 -5 days. Discuss referral to neuro and cardiology for dizziness symptoms. Drink plenty of fluids. Discussed diet with primary care provider. Take medications as directed. Patient questions asked and answered. ER precautions given, patient instructed to return to ER immediately for any new or worsening of symptoms. Spencer Griffith Apr 06, 2018 12:20 Jeronimo Cameron MD Apr 06, 2018 22:01
[2018-04-06 12:59] LABS: BASOPHILS % (AUTO) 0.9 % (0.0-2.0); EOSINOPHILS % (AUTO) 1.3 % (0.0-3.0); HEMATOCRIT 41.2 % (37.0-47.0); HEMOGLOBIN 13.3 G/DL (12.0-16.0); LYMPHOCYTES % (AUTO) 27.9 % (20.0-45.0); MEAN CORPUSCULAR VOLUME 91 FL (80-99); MONOCYTES % (AUTO) 5.3 % (1.0-10.0); NEUTROPHILS % (AUTO) 64.6 % (45.0-75.0); PLATELET COUNT 200 K/UL (150-450); RED BLOOD COUNT 4.56 M/UL (4.20-5.40); WHITE BLOOD COUNT 4.2 K/UL (4.8-10.8)
--- NOTE | 2018-04-06 13:05 | NUR ---
ED Nurse Note: Pt present at ER c/o nausea and dizziness but no vomiting episode. Pt AAO x4 and calm. at bedside. skin intact and clean.
[2018-04-06 13:07] LABS: ANION GAP 9 mmol/L (5-15); BLOOD UREA NITROGEN 12 mg/dL (7-18); CALCIUM 8.3 MG/DL (8.5-10.1); CARBON DIOXIDE 26 MMOL/L (21-32); CHLORIDE 106 MMOL/L (98-107); CREATININE 0.6 MG/DL (0.55-1.30); POTASSIUM 4.6 MMOL/L (3.5-5.1); SODIUM 141 MMOL/L (136-145)
--- NOTE | 2018-04-06 13:10 | NUR ---
ED Nurse Note: Orthostatic blood pressure done LayinHR, 111/64 BP Sittin HR 121/74 BP StandinHR: 116/64
[2018-04-06 13:11] LABS: ALANINE AMINOTRANSFERASE 29 U/L (12-78); ALBUMIN 3.1 G/DL (3.4-5.0); ALBUMIN/GLOBULIN RATIO 0.7 (1.0-2.7); ALKALINE PHOSPHATASE 75 U/L (46-116); ASPARTATE AMINO TRANSFERASE 19 U/L (15-37); BILIRUBIN,TOTAL 0.4 MG/DL (0.2-1.0)
[2018-04-06 13:12] VITALS: BP 116/65
[2018-04-06 13:20] LABS: APPEARANCE,URINE CLEAR; BILIRUBIN, URINE NEGATIVE (NEGATIVE); COLOR,URINE PALE YELLOW; GLUCOSE, URINE (UA) NEGATIVE (NEGATIVE); KETONES,URINE NEGATIVE (NEGATIVE); LEUKOCYTE ESTERASE ,URINE NEGATIVE (NEGATIVE); NITRITE,URINE NEGATIVE (NEGATIVE); PH,URINE 6 (4.5-8.0); PROTEIN,URINE NEGATIVE (NEGATIVE); UROBILINOGEN,URINE NORMAL MG/DL (0.0-1.0)
[2018-04-06] MEDS ORDERED: MECLIZINE HCL25 MG ORAL (13:55)
[2018-04-06 14:00] VITALS: BP 120/73
[2018-04-06] MEDS ORDERED: Fluconazole 100mg tab ORAL ONE (14:00)
--- NOTE | 2018-04-06 14:00 | NUR ---
ED Nurse Note: Patient is being discharged from ED after being medically cleared by ERMD, patient is alert and oriented x4, ambulatory with a steady gait, VSS. patient's ID band and IV line removed
--- NOTE | 2018-04-06 14:28 | Diagnostic Imaging Report ---
Indication: Shortness of breath Technique: One view of the chest Comparison: 05/03/2017 Findings: The heart is borderline enlarged. The lungs and pleural spaces are clear. There is no significant interim change Impression: No acute process
== END 2018-04-06 14:00 | disposition home or self-care (01) ==
LOC: EMR 12:24
DX: R42 Dizziness and giddiness (principal); B37.9 Candidiasis, unspecified; J45.909 Unspecified asthma, uncomplicated; K21.9 Gastro-esophageal reflux disease without esophagitis
CPT/HCPCS: 36415; 71045; 80053; 81003; 81025; 83690; 85025; 87086; 96374; 99284; J2405

== ENCOUNTER 2018-11-01 15:52 | Emergency (ER) | payer MEDICAID ==
[~2018-11-01] VITALS: Ht 172.7 cm; Wt 172.4 kg
[~2018-11-01 15:52] MED LIST changes: +MECLIZINE HCL25 MG ORAL
[2018-11-01 15:56] VITALS: BP 130/72
--- NOTE | 2018-11-01 16:06 | NUR ---
ED Nurse Note: Pt came in due to SOB since last night. Pt takes albuterol at home but reports it is not effective for her. AAO x4, ambulatory with mild SOB upon exertion. Lungs are clear when auscultated.
--- NOTE | 2018-11-01 16:15 | NUR ---
ED Nurse Note: RT at the bed side for breathing treatment.
[2018-11-01] MEDS: Albuterol/Ipratropium 3ml neb HHN SCH ×3 (16:19→16:39)
[2018-11-01 16:42] LABS: BASOPHILS % (AUTO) 1.6 % (0.0-2.0); EOSINOPHILS % (AUTO) 1.4 % (0.0-3.0); HEMATOCRIT 36.8 % (37.0-47.0); HEMOGLOBIN 12.6 G/DL (12.0-16.0); LYMPHOCYTES % (AUTO) 28.5 % (20.0-45.0); MEAN CORPUSCULAR VOLUME 87 FL (80-99); MONOCYTES % (AUTO) 6.6 % (1.0-10.0); NEUTROPHILS % (AUTO) 61.9 % (45.0-75.0); PLATELET COUNT 263 K/UL (150-450); RED BLOOD COUNT 4.24 M/UL (4.20-5.40); RED CELL DISTRIBUTION WIDTH 12.1 % (11.6-14.8); WHITE BLOOD COUNT 7.1 K/UL (4.8-10.8)
[2018-11-01 16:43] LABS: APPEARANCE,URINE CLEAR; BILIRUBIN, URINE NEGATIVE (NEGATIVE); COLOR,URINE PALE YELLOW; GLUCOSE, URINE (UA) NEGATIVE (NEGATIVE); KETONES,URINE NEGATIVE (NEGATIVE); LEUKOCYTE ESTERASE ,URINE NEGATIVE (NEGATIVE); NITRITE,URINE NEGATIVE (NEGATIVE); PH,URINE 5 (4.5-8.0); PROTEIN,URINE NEGATIVE (NEGATIVE); UROBILINOGEN,URINE NORMAL MG/DL (0.0-1.0)
[2018-11-01 16:44] LABS: ANION GAP 9 mmol/L (5-15); BLOOD UREA NITROGEN 10 mg/dL (7-18); CALCIUM 8.6 MG/DL (8.5-10.1); CARBON DIOXIDE 28 MMOL/L (21-32); CHLORIDE 103 MMOL/L (98-107); CREATININE 0.7 MG/DL (0.55-1.30); POTASSIUM 3.8 MMOL/L (3.5-5.1); SODIUM 140 MMOL/L (136-145)
[2018-11-01 16:48] LABS: ALANINE AMINOTRANSFERASE 20 U/L (12-78); ALBUMIN 3.5 G/DL (3.4-5.0); ALBUMIN/GLOBULIN RATIO 0.9 (1.0-2.7); ALKALINE PHOSPHATASE 67 U/L (46-116); ASPARTATE AMINO TRANSFERASE 14 U/L (15-37); BILIRUBIN,TOTAL 0.5 MG/DL (0.2-1.0)
--- NOTE | 2018-11-01 17:11 | Diagnostic Imaging Report ---
Indication: Shortness of breath Technique: One view of the chest Comparison: 04/06/2018 Findings: Lungs and pleural spaces are clear. The heart is enlarged. There is no significant interim change Impression: No acute process
--- NOTE | 2018-11-01 17:21 | Emergency Room Report ---
History of Present Illness General Chief Complaint: Dyspnea/Respdistress Source: Medical Record Present Illness HPI 53-year-old female with no significant past medical history other than asthma currently controlled with albuterol inhaler here complaining of 2 days of shortness of breath. Patient reports that her shortness of breath is intermittent and has happened during rest and exertion. Complains of minor anxiety however denies suicidal homicidal ideation. Denies chest pain, pain radiation, pleuritic chest pain, palpitation, dizziness and headache. Patient is morbidly obese and reports that she often deals with ankle swelling bilaterally upon standing on her feet for too long however denies numbness in the legs and calf tenderness. Denies abdominal pain, nausea vomiting, and all other associated symptoms. Has not taken medication for symptom relief. Denies syncope. Denies wheezing patient is sitting comfortably with normal vital signs Allergies: Coded Allergies: No Known Allergies (Unverified , 08/08/12) Patient History Past Medical History: see triage record Past Surgical History: unable to obtain Pertinent Family History: none Last Menstrual Period: menopasue Now: No Immunizations: UTD Reviewed Nursing Documentation: PMH: Agreed; PSxH: Agreed Nursing Documentation-PMH Past Medical History: No History, Except For Hx Cardiac Problems: No - Gout, Osteoporosis Hx Hypertension: No Hx Pacemaker: No Hx Asthma: Yes Hx COPD: No Hx Diabetes: No Hx Cancer: No Hx Gastrointestinal Problems: Yes - GERD Hx Dialysis: No Hx Neurological Problems: No Hx Cerebrovascular Accident: No Hx Seizures: No Review of Systems All Other Systems: negative except mentioned in HPI Physical Exam Vital Signs Date Time Temp Pulse Resp B/P (MAP) Pulse Ox O2 Delivery O2 Flow Rate FiO2 11/01/18 15:56 97.5 69 18 130/72 (91) 100 Room Air 11/01/18 16:17 21 Sp02 EP Interpretation: reviewed, normal General Appearance: no apparent distress, alert, GCS 15, non-toxic Head: normocephalic, atraumatic Eyes: bilateral eye normal inspection, bilateral eye PERRL ENT: hearing grossly normal, normal pharynx, no angioedema, normal voice Neck: full range of motion, supple/symm/no masses Respiratory: chest non-tender, lungs clear, normal breath sounds, no rhonchi, no respiratory distress, no wheezing, speaking full sentences Cardiovascular #1: regular rate, rhythm, no edema, no murmur Cardiovascular #2: 2+ dorsalis pedis (R), 2+ dorsalis pedis (L) Gastrointestinal: normal bowel sounds, non tender, soft, non-distended, no guarding, no rebound Genitourinary: normal inspection, no CVA tenderness Musculoskeletal: back normal, gait/station normal, normal range of motion, non- tender, no calf tenderness Neurologic: alert, oriented x3, responsive, motor strength/tone normal, sensory intact, speech normal Psychiatric: judgement/insight normal, memory normal, mood/affect normal, no suicidal/homicidal ideation Skin: no rash Lymphatic: no adenopathy Medical Decision Making PA Attestation Diagnosis and treatment plans were reviewed and discussed with my supervising physician Dr. Sanchez Diagnostic Impression: Primary Impression: Dyspnea Additional Impressions: Asthma exacerbation Cardiomegaly ER Course 53-year-old female with no significant past medical history other than asthma currently controlled with albuterol inhaler here complaining of 2 days of shortness of breath. Patient reports that her shortness of breath is intermittent and has happened during rest and exertion. Complains of minor anxiety however denies suicidal homicidal ideation. Denies chest pain, pain radiation, pleuritic chest pain, palpitation, dizziness and headache. Patient is morbidly obese and reports that she often deals with ankle swelling bilaterally upon standing on her feet for too long however denies numbness in the legs and calf tenderness. Denies abdominal pain, nausea vomiting, and all other associated symptoms. Has not taken medication for symptom relief. Denies syncope. Denies wheezing patient is sitting comfortably with normal vital signs Ddx considered but are not limited to: MT, Angina, COPD, GERD, S OB secondary to asthma exacerbation, pulmonary embolism Vital signs: are WNL, pt. is afebrile H&PE are most consistent with dyspnea secondary to asthma exacerbation, cardiomegaly ORDERS: EKG, Chest XR, cardiac labs(troponin, CBC, CMP), prednisone, albuterol inhaler ED INTERVENTIONS: Breathing treatment DISCHARGE: At this time pt. is stable for d/c to home. Will provide printed patient care instructions, and any necessary prescriptions. Care plan and follow up instructions have been discussed with the patient prior to discharge. At this time no indication to see patient for possible DVT or pulmonary embolus as patient has normal vital signs no calf tenderness noted no pleuritic chest pain reported. Patient highly advised to lose weight also see her primary care physician for referral to [facility] for echocardiogram of her heart due to her cardiomegaly and also will be sent to vascular specialist. If worsening symptoms return to the emergency room. My supervising physician Dr. Sanchez agrees with the above treatment and discharge EKG Diagnostic Results Rate: normal Rhythm: NSR ST Segments: no acute changes Other Impression No acute ST changes Chest X-Ray Diagnostic Results Chest X-Ray Diagnostic Results : Chest X-Ray Ordered: Yes # of Views/Limited/Complete: 1 View Indication: Shortness of Breath EP Interpretation: Yes PA Xray: Interpretation reviewed, by supervising MD, and agrees with findings. Interpretation: no consolidation, no effusion, no pneumothorax Impression: Other - cardiomegaly Electronically Signed by: Jose Maria Jain PA-C Last Vital Signs Date Time Temp Pulse Resp B/P (MAP) Pulse Ox O2 Delivery O2 Flow Rate FiO2 11/01/18 16:50 71 22 100 Room Air 21 11/01/18 15:56 97.5 130/72 Disposition: HOME, SELF-CARE Condition: Stable Scripts Albuterol Sulfate (VENTOLIN HFA) 18 Gm Hfa.aer.ad 2 PUFFS INH EVERY 6 HOURS, #18 GM 0 Refills Prov: Jose Maria Gonzalez 11/01/18 Prednisone* (PREDNISONE*) 20 Mg Tablet 20 MG ORAL BID for 5 Days, #10 TAB 0 Refills Prov: Jose Maria Gonzalez 11/01/18 Referrals: LEBRON GREWAL,REFERRING (PCP) Patient Instructions: Asthma, Adult, [id number], Shortness of Breath, Easy-to -Read Additional Instructions: Follow-up with your primary care provider for referral to [facility] and echocardiogram of your heart if worsening symptoms return to the emergency room Jose Maria Gonzalez Nov 01, 2018 17:21
[2018-11-01] MEDS ORDERED: VENTOLIN HFA18 GM INH (17:23)
[2018-11-01] MEDS ORDERED: PREDNISONE20 MG ORAL (17:23)
[2018-11-01 17:35] VITALS: BP 127/75
--- NOTE | 2018-11-01 17:35 | NUR ---
ER DISCHARGE NOTE: Patient is cleared to be discharged per ERMD, pt is aox4, on room air, with stable vital signs. pt was given dc and prescription instructions, pt was able to verbalize understanding, pt id band and iv site removed without complications. pt is able to ambulate with steady gait. pt took all belongings and left with her family member.
--- NOTE | 2018-11-04 13:08 | Cardiology Report ---
APPROVED REPORT EKG Measurement Heart [id number] Normal sinus rhythm Normal ECG
== END 2018-11-01 17:35 | disposition home or self-care (01) ==
LOC: EMR 16:30
DX: J45.901 Unspecified asthma with (acute) exacerbation (principal); I51.7 Cardiomegaly; K21.9 Gastro-esophageal reflux disease without esophagitis; M81.0 Age-related osteoporosis without current pathological fracture; M10.9 Gout, unspecified; F41.9 Anxiety disorder, unspecified; E66.01 Morbid (severe) obesity due to excess calories; Z68.43 Body mass index [BMI] 50.0-59.9, adult
CPT/HCPCS: 36415; 71045; 80053; 80307; 81001; 84484; 85025; 93005; 94640; 94664; 99284; J7620

== ENCOUNTER 2018-11-07 08:11 | Emergency (ER) | payer MEDICAID ==
[~2018-11-07] VITALS: Ht 172.7 cm; Wt 167.8 kg
[~2018-11-07 08:11] MED LIST changes: +PREDNISONE20 MG ORAL; +VENTOLIN HFA18 GM INH
--- NOTE | 2018-11-07 08:23 | NUR ---
ED Nurse Note: PT WALKED IN TO ER TODAY FROM HOME. AOX4. PT C/O LEFT-SIDED MID-BACK PAIN, 6/10 X LAST NIGHT. PT DENIES ANY TRAUMA OR INJURY. NO MEDS TAKEN AT HOME FOR PAIN. PT DENIES NUMBNESS, TINGLING, OR WEAKNESS. PT AMBULATORY WITH STEADY GAIT.
[2018-11-07 08:24] VITALS: BP 122/76
[2018-11-07] MEDS ORDERED: IBUPROFEN600 MG ORAL (08:55)
[2018-11-07] MEDS ORDERED: METHOCARBAMOL750 MG ORAL (08:55)
--- NOTE | 2018-11-07 08:56 | Emergency Room Report ---
History of Present Illness General Chief Complaint: Back Pain-No Injury Source: Patient Present Illness HPI Disclaimer: Please note that this report is being documented using DRAGON technology. This can lead to erroneous entry secondary to incorrect interpretation by the dictating instrument. HPI: 53-year-old female with history of asthma presents for evaluation of back pain and shortness of breath. Pain in the left upper back for the past day. Was sitting up sleeping on the couch overnight. Noticed some shortness of breath somewhat related to the back pain but otherwise likely from her asthma. This was relieved with albuterol. Denies fever, cough. There is no new fall or injury. She is also noticed that she was having some vaginal bleeding. The patient is undergoing menopause and has irregular periods having some vaginal spotting or bleeding every 3 to 6 months. She follows up with an TOOL GRINDER regularly. She is scheduled for colonoscopy next week and states she just had a regular physical exam which was unremarkable. Denies any lower extremity weakness, saddle anesthesia, urinary retention or fecal incontinence. PMH: Obesity, asthma, GERD PSH: Denies Allergies: Denies Social Hx: Occasional alcohol use. Denies smoking or drug use Allergies: Coded Allergies: No Known Allergies (Unverified , 08/08/12) Patient History Now: No Nursing Documentation-PMH Past Medical History: No History, Except For Hx Cardiac Problems: No - Gout, Osteoporosis Hx Hypertension: No Hx Pacemaker: No Hx Asthma: Yes Hx COPD: No Hx Diabetes: No Hx Cancer: No Hx Gastrointestinal Problems: Yes - GERD Hx Dialysis: No Hx Neurological Problems: No Hx Cerebrovascular Accident: No Hx Seizures: No Review of Systems All Other Systems: negative except mentioned in HPI Physical Exam Vital Signs Date Time Temp Pulse Resp B/P (MAP) Pulse Ox O2 Delivery O2 Flow Rate FiO2 11/07/18 08:17 97.9 68 20 124/77 (93) 98 Room Air General: Awake and alert, no acute distress HEENT: NC/AT. EOMI. Cardiovascular: RRR. S1 and S2 normal. No murmur appreciated Resp: Normal work of breathing. No cough, wheezing or crackles appreciated Abdomen: Abdomen is soft, nondistended, morbidly obese. Nontender Skin: Intact. No abrasions, laceration or rash over the exposed skin MSK: Normal tone and bulk. Moving all extremities. No obvious deformity. Neuro: Awake and alert. Mentating appropriately. Back/Spine: No midline tenderness in the cervical, thoracic or lumbosacral spine. There is significant tenderness in the mid thoracic spine in the paraspinal and mid scapular line. No obvious trigger point. No back pain in the lower paraspinal regions Medical Decision Making Diagnostic Impression: Primary Impression: Back pain Additional Impressions: Muscle spasm Irregular menses ER Course 53-year-old female presents for evaluation of back pain shortness of breath. The shortness of breath is now resolved after using her albuterol inhaler at home. She also states that is likely related to her anxiety symptoms as she was uncomfortable given the recent left-sided mid scapular back pain. I believe this is a muscle spasm which we will treat with NSAIDs and muscle relaxants. She can follow-up as an outpatient with her TOOL GRINDER for her irregular menses in the setting of menopause. She has no pelvic discomfort, no vaginal discharge, afebrile and overall well-appearing. She is ablating without difficulty in the emergency department is stable for outpatient follow- up. We discussed reasons to return to the emergency department with patient and family who are present at bedside. They understand and agree with this treatment plan will be discharged home. Last Vital Signs Date Time Temp Pulse Resp B/P (MAP) Pulse Ox O2 Delivery O2 Flow Rate FiO2 11/07/18 08:24 98.1 72 18 122/76 100 Room Air Disposition: HOME, SELF-CARE Condition: Stable Scripts Methocarbamol* (METHOCARBAMOL*) 750 Mg Tablet 750 MG ORAL FOUR TIMES A DAY PRN for For Pain, #20 TAB 0 Refills Prov: Brando Smith MD 11/07/18 Ibuprofen* (MOTRIN*) 600 Mg Tablet 600 MG ORAL Q6H PRN for For Pain, #30 TAB 0 Refills Prov: Brando Smith MD 11/07/18 Patient Instructions: Muscle Cramps and Spasms, [id number] Additional Instructions: Your evaluated in the emergency department today for back pain. Likely, this is related to a muscle spasm in the back which we will treat with ibuprofen and antibiotics. I encourage you to continue stretching, massage, warm soaks and stay as mobile as possible. Continue using your albuterol inhaler as prescribed for shortness of breath and follow-up with your TOOL GRINDER regarding your irregular menses. I encourage you to keep your scheduled colonoscopy next week and to follow-up with your primary and TOOL GRINDER at the next available appointments. Return to the emergency department any new or worsening symptoms. Brando Smith MD Nov 07, 2018 08:56
--- NOTE | 2018-11-07 09:00 | NUR ---
ED Nurse Note: PT LAYING PEACEFULLY IN BED IN NAD. AOX4. PRESCRIPTIONS AND DISCHARGE PAPERWORK EXPLAINED TO PT. PT VERBALIZES UNDERSTANDING AND ALL QUESTIONS ANSWERED. PRESCRIPTIONS AND DISCHARGE PAPERWORK GIVEN TO PT AND ID WRISTBAND REMOVED. PT WALKED OUT OF ER WITH STEADY GAIT AND ALL BELONGINGS.
[2018-11-07 09:02] VITALS: BP 126/76
== END 2018-11-07 09:00 | disposition home or self-care (01) ==
LOC: EMR 08:39
DX: M54.6 Pain in thoracic spine (principal); K21.9 Gastro-esophageal reflux disease without esophagitis; M62.838 Other muscle spasm; N92.6 Irregular menstruation, unspecified; R06.02 Shortness of breath; J45.909 Unspecified asthma, uncomplicated; M10.9 Gout, unspecified; M81.0 Age-related osteoporosis without current pathological fracture; E66.9 Obesity, unspecified; Z68.43 Body mass index [BMI] 50.0-59.9, adult
CPT/HCPCS: 99282

== ENCOUNTER 2019-10-05 22:09 | Emergency (ER) | payer MEDICAID ==
[~2019-10-05] VITALS: Ht 177.8 cm; Wt 169.2 kg
[~2019-10-05 22:09] MED LIST changes: +METHOCARBAMOL750 MG ORAL
--- NOTE | 2019-10-05 22:26 | Emergency Room Report ---
History of Present Illness General Chief Complaint: Multiple Trauma/Fall Source: Patient Present Illness HPI This is a 54-year-old female with history of asthma. She presents with chief complaint of pain from a fall. She was at a nearby supermarket and slipped on some water and fell. She says she hurt her back and twisted her right knee. She complained of mostly knee pain. Worse with walking. Pain is 8 out of 10. Also with left-sided back pain. No loss of consciousness. No head injury. Denies any other complaint. Allergies: Coded Allergies: No Known Allergies (Unverified , 08/08/12) COVID-19 Screening Contact w/high risk pt: No Experienced COVID-19 symptoms?: No COVID-19 Testing performed SURVEY ANALYST: No Patient History Past Medical History: see triage record, old chart reviewed, asthma Past Surgical History: none Pertinent Family History: none Social History: Denies: smoking Now: No Immunizations: other Reviewed Nursing Documentation: PMH: Agreed; PSxH: Agreed Nursing Documentation-PMH Hx Cardiac Problems: No - Gout, Osteoporosis Hx Hypertension: No Hx Pacemaker: No Hx Asthma: Yes Hx COPD: No Hx Diabetes: No Hx Cancer: No Hx Gastrointestinal Problems: Yes - GERD Hx Dialysis: No Hx Neurological Problems: No Hx Cerebrovascular Accident: No Hx Seizures: No Review of Systems Eye: Denies: eye pain, blurred vision ENT: Denies: ear pain, nose congestion, throat swelling Respiratory: Denies: cough, shortness of breath Cardiovascular: Denies: chest pain, palpitations Gastrointestinal: Denies: abdominal pain, diarrhea, nausea, vomiting Musculoskeletal: Reports: back pain, joint pain Skin: Denies: rash Neurological: Denies: headache, numbness Endocrine: Denies: increased thirst, increased urine Hematologic/Lymphatic: Denies: easy bruising All Other Systems: negative except mentioned in HPI Physical Exam Vital Signs Date Time Temp Pulse Resp B/P (MAP) Pulse Ox O2 Delivery O2 Flow Rate FiO2 10/05/19 22:17 98.2 85 18 135/73 (93) 99 Room Air Vitals normal Sp02 EP Interpretation: reviewed, normal General Appearance: well appearing, no apparent distress, alert, obese Head: normocephalic, atraumatic Eyes: bilateral eye PERRL, bilateral eye EOMI ENT: hearing grossly normal, normal pharynx Neck: full range of motion, supple, no meningismus Respiratory: chest non-tender, lungs clear, normal breath sounds Cardiovascular #1: regular rate, rhythm, no murmur Gastrointestinal: normal bowel sounds, non tender, no mass, no organomegaly, no bruit, non-distended Musculoskeletal: back normal - Lower lumbar paraspinous muscle tenderness. No midline tenderness. TTP over sacral area, normal range of motion, gait/station normal, tender - Right knee: Diffuse tenderness laterally. No deformity. Full range of motion. No edema. Psychiatric: mood/affect normal Medical Decision Making Diagnostic Impression: Primary Impression: Sprain of right knee Qualified Codes: S83.91XA - Sprain of unspecified site of right knee, initial encounter Additional Impressions: Lumbar back sprain Qualified Codes: S33.5XXA - Sprain of ligaments of lumbar spine, initial encounter Coccyx contusion Qualified Codes: S30.0XXA - Contusion of lower back and pelvis, initial encounter ER Course Patient presents with soft tissue injury from fall. No evidence of any fracture dislocation. Will discharge home. Other X-Ray Diagnostic Results Other X-Ray Diagnostic Results #1: X-Ray ordered: X-rays right knee # of Views/Limited Vs Complete: 4 View Indication: Pain EP Interpretation: Yes Interpretation: no dislocation, no soft tissue swelling, no fractures, other - Degenerative changes Impression: Other - Degenerative changes Electronically Signed by: Lennox Pereyra MD Other X-Ray Diagnostic Results #2: X-Ray ordered: Lumbar x-rays # of Views/Limited Vs Complete: 4 View Indication: Pain EP Interpretation: Yes Interpretation: no dislocation, no soft tissue swelling, no fractures, nonspecific bowel gas Impression: No acute disease Electronically Signed by: Lennox Pereyra MD Other X-Ray Diagnostic Results #3: X-Ray ordered: Sacral coccyx x-rays # of Views/Limited Vs Complete: 1 View Indication: Pain EP Interpretation: Yes Interpretation: no dislocation, no soft tissue swelling, no fractures Impression: No acute disease Electronically Signed by: Lennox Pereyra MD Last Vital Signs Date Time Temp Pulse Resp B/P (MAP) Pulse Ox O2 Delivery O2 Flow Rate FiO2 10/04/ 22:17 98.2 85 18 135/73 (93) 99 Room Air Status: improved Disposition: HOME, SELF-CARE Condition: Stable Scripts Ibuprofen* (MOTRIN*) 600 Mg Tablet 600 MG ORAL Q6H PRN for For Pain, #30 TAB 0 Refills Prov: Lennox Pereyra MD 10/05/19 Hydrocodone/Acetaminophen 5-325* (HYDROCODONE/ACETAMINOPHEN 5-325*) 1 Each Tablet 1 TAB ORAL Q6H PRN for For Pain, #20 TAB 0 Refills Prov: Lennox Pereyra MD 10/05/19 Referrals: NON PHYSICIAN (PCP) Additional Instructions: Follow-up with in 7 days. Ice pack to the area. Return if worse. Lennox Pereyra MD Oct 05, 2019 22:26
[2019-10-05 22:30] VITALS: BP 135/73
[2019-10-05] MEDS ORDERED: HYDROcodone/Acetamin 5/325 tab ORAL ONE (22:30)
--- NOTE | 2019-10-05 22:32 | NUR ---
ED Nurse Note: Patient walked in to ER from home due to fall. Stated sliped today at the store and fell. Patient c/o lower back pain, bilaterally knees pain, right hip and shoulder pain. Patient presented calm, AAO x4, VSS at this time, skin is warm to touch.
--- NOTE | 2019-10-05 22:33 | NUR ---
ED Nurse Note: X ray at bed side
[2019-10-05] MEDS ORDERED: IBUPROFEN600 M1 ORAL (23:07)
[2019-10-05] MEDS ORDERED: HYDROCODON-ACE1 EA15 ORAL (23:07)
[2019-10-05 23:20] VITALS: BP 132/70
--- NOTE | 2019-10-05 23:20 | NUR ---
ED Nurse Note: All orders completed per ERMD orders; radiology report explain by MD. Patient is cleared to be discharged per ERMD, pt is aox4, on room air, with stable vital signs. Pt was given dc and prescription instructions, Pt was able to verbalize understanding, Instructed pt to follow up with primary care physcian within one week for further care. Pt id band removed. Pt is able to ambulate with steady gait. Pt took all belongings.
--- NOTE | 2019-10-05 23:22 | Diagnostic Imaging Report ---
EXAM: XR Sacrum and Coccyx, 2 Views CLINICAL HISTORY: She presents with chief complaint of pain from a fall she hurt her back and twisted her right knee TECHNIQUE: Frontal and lateral views of the sacrum and coccyx. COMPARISON: No relevant prior studies available. FINDINGS: Sacrum/coccyx: Unremarkable as visualized. No fracture. Vertebrae: Visualized lumbar vertebrae are unremarkable. Soft tissues: Unremarkable. IMPRESSION: No fracture
--- NOTE | 2019-10-05 23:23 | Diagnostic Imaging Report ---
EXAM: XR Right Knee, 3 Views CLINICAL HISTORY: TRAUMA TECHNIQUE: Three views of the right knee. COMPARISON: No relevant prior studies available. FINDINGS: Bones/joints: Moderate osteoarthritic changes, characterized by joint space narrowing and osteophyte formation, worse in the lateral compartment No fracture. No dislocation. Soft tissues: Unremarkable. IMPRESSION: No acute findings in the right knee.
--- NOTE | 2019-10-05 23:23 | Diagnostic Imaging Report ---
EXAM: XR Lumbosacral Spine, 2 or 3 Views CLINICAL HISTORY: She presents with chief complaint of pain from a fall she hurt her back and twisted her right knee TECHNIQUE: Frontal and lateral views of the lumbar spine and sacrum. COMPARISON: No relevant prior studies available. FINDINGS: Vertebrae: No compression fracture. Normal alignment. Sacrum/coccyx: Unremarkable as visualized. No fracture. Disc spaces: Mild degenerative disc disease. Soft tissues: Unremarkable. IMPRESSION: No subluxation or compression fracture
== END 2019-10-05 23:20 | disposition home or self-care (01) ==
LOC: EMR 22:23
DX: S83.91XA Sprain of unspecified site of right knee, initial encounter (principal); S33.5XXA Sprain of ligaments of lumbar spine, initial encounter; S30.0XXA Contusion of lower back and pelvis, initial encounter; M81.0 Age-related osteoporosis without current pathological fracture; K21.9 Gastro-esophageal reflux disease without esophagitis; W01.0XXA Fall on same level from slipping, tripping and stumbling without subsequent striking against object, initial encounter; Y92.512 Supermarket, store or market as the place of occurrence of the external cause; E66.9 Obesity, unspecified; Z68.43 Body mass index [BMI] 50.0-59.9, adult
CPT/HCPCS: 72020; 72220; 73562; Z7502; 99284

== ENCOUNTER 2020-01-02 17:57 | Emergency (ER) | payer MEDICAID ==
[~2020-01-02] VITALS: Ht 175.3 cm; Wt 172.4 kg
[~2020-01-02 17:57] MED LIST changes: +HYDROCODON-ACE1 EA15 ORAL; +IBUPROFEN600 M1 ORAL
[2020-01-02 18:54] VITALS: BP 137/65
[2020-01-02 19:48] LABS: BASOPHILS % (AUTO) 1.4 % (0.0-2.0); EOSINOPHILS % (AUTO) 0.7 % (0.0-3.0); HEMOGLOBIN 13.9 G/DL (12.0-16.0); LYMPHOCYTES % (AUTO) 27.6 % (20.0-45.0); MEAN CORPUSCULAR VOLUME 90 FL (80-99); MONOCYTES % (AUTO) 4.6 % (1.0-10.0); NEUTROPHILS % (AUTO) 65.8 % (45.0-75.0); PLATELET COUNT 286 K/UL (150-450); RED BLOOD COUNT 4.65 M/UL (4.20-5.40); RED CELL DISTRIBUTION WIDTH 13.3 % (11.6-14.8); WHITE BLOOD COUNT 6.2 K/UL (4.8-10.8)
[2020-01-02 20:13] LABS: ANION GAP 8 mmol/L (5-15); BLOOD UREA NITROGEN 14 mg/dL (7-18); CALCIUM 8.7 MG/DL (8.5-10.1); CARBON DIOXIDE 29 MMOL/L (21-32); CHLORIDE 103 MMOL/L (98-107); CREATININE 0.9 MG/DL (0.55-1.30); POTASSIUM 3.9 MMOL/L (3.5-5.1); SODIUM 140 MMOL/L (136-145)
[2020-01-02 20:28] LABS: ALANINE AMINOTRANSFERASE 13 U/L (12-78); ASPARTATE AMINO TRANSFERASE 13 U/L (15-37); BILIRUBIN,TOTAL 0.4 MG/DL (0.2-1.0)
[2020-01-02 20:29] LABS: APPEARANCE,URINE SLIGHTLY CLOUDY; BILIRUBIN, URINE NEGATIVE (NEGATIVE); COLOR,URINE PALE YELLOW; GLUCOSE, URINE (UA) NEGATIVE (NEGATIVE); KETONES,URINE 1+ (NEGATIVE); LEUKOCYTE ESTERASE ,URINE 1+ (NEGATIVE); NITRITE,URINE NEGATIVE (NEGATIVE); PH,URINE 5 (4.5-8.0); PROTEIN,URINE 2+ (NEGATIVE); UROBILINOGEN,URINE NORMAL MG/DL (0.0-1.0)
[2020-01-02 20:29] LABS: ALBUMIN 3.6 G/DL (3.4-5.0); ALKALINE PHOSPHATASE 80 U/L (46-116); LACTATE DEHYDROGENASE 228 U/L (135-225)
[2020-01-02 20:30] LABS: FERRITIN 104 NG/ML (8-388)
[2020-01-02 20:39] VITALS: BP 116/57
--- NOTE | 2020-01-02 21:29 | Emergency Room Report ---
History of Present Illness General Chief Complaint: General Complaint Source: Patient Present Illness HPI This patient states that for the past few days she has had pain in her left upper back. She states that when she has this pain she also feels short of breath. She states the pain comes and goes and is intermittent at times. She denies recent illness. She denies cough or congestion. She denies fever chills. She denies nausea or vomiting. She states the symptoms can occur at any time and have no relation to anything that she is doing. They are not exertional. She also notes that she has had intermittent and irregular vaginal spotting. She admits that she is perimenopausal. She did see a speech pathologist assistant recently and underwent a lot of testing and was told that she is perimenopausal. She denies pelvic pain. She denies abnormal vaginal discharge. She has no other complaints. Allergies: Coded Allergies: No Known Allergies (Unverified , 08/08/12) COVID-19 Screening Contact w/high risk pt: No Experienced COVID-19 symptoms?: Yes COVID-19 Testing performed REGULATORY AUDITOR: No Patient History Past Medical History: see triage record, asthma, GERD Social History: Denies: smoking, alcohol use, drug use Last Menstrual Period: NA Reviewed Nursing Documentation: PMH: Agreed; PSxH: Agreed Nursing Documentation-PMH Past Medical History: No History, Except For Hx Cardiac Problems: No - Gout, Osteoporosis Hx Hypertension: No Hx Pacemaker: No Hx Asthma: Yes Hx COPD: No Hx Diabetes: No Hx Cancer: No Hx Gastrointestinal Problems: Yes - GERD Hx Dialysis: No Hx Neurological Problems: No Hx Cerebrovascular Accident: No Hx Seizures: No Review of Systems All Other Systems: negative except mentioned in HPI Physical Exam Vital Signs Date Time Temp Pulse Resp B/P (MAP) Pulse Ox O2 Delivery O2 Flow Rate FiO2 01/02/20 18:09 97.9 77 17 142/68 (92) 98 Room Air 01/02/20 18:54 98 Sp02 EP Interpretation: reviewed, normal General Appearance: no apparent distress, alert, GCS 15, non-toxic, obese Head: normocephalic, atraumatic Eyes: bilateral eye normal inspection ENT: hearing grossly normal, normal pharynx, no angioedema, normal voice Neck: normal inspection, full range of motion Respiratory: chest non-tender, lungs clear, normal breath sounds, no respiratory distress, no retraction, no accessory muscle use, speaking full sentences Cardiovascular #1: regular rate, rhythm, no edema Gastrointestinal: normal bowel sounds, non tender, soft, non-distended, no guarding, no rebound Rectal: deferred Musculoskeletal: back normal, normal range of motion, gait/station normal, tender - TTP over the L. trapezius m. at the insertion of the left scapula and throughout. Neurologic: alert, motor strength/tone normal, oriented x3, sensory intact, responsive, speech normal Psychiatric: judgement/insight normal, memory normal, mood/affect normal, no suicidal/homicidal ideation Medical Decision Making Diagnostic Impression: Primary Impression: Trapezius muscle spasm Additional Impression: Musculoskeletal pain ER Course This patient had complained of shortness of breath that occurred whenever she had pain in her back. The pain in the patient's back was clearly musculoskeletal. However, given the shortness of breath I felt that I should obtain a full work-up to include a cardiac work-up. This was all unremarkable. Chest x-ray was negative. Laboratory work-up was benign. The patient overall is low risk for PE and acute coronary syndrome. Did not feel that any further evaluation was indicated. The patient has pain with range of motion and has tenderness to palpation along the muscle. There is no evidence of compartment syndrome. There is no neurologic deficit. The patient was instructed on supportive home measures. No emergency medical condition was identified. The patient was given return precautions and followup instructions. Laboratory Tests Test 01/02/20 18:45 01/02/20 19:40 White Blood Count 6.2 K/UL (4.8-10.8) Red Blood Count 4.65 M/UL (4.20-5.40) Hemoglobin 13.9 G/DL (12.0-16.0) Hematocrit 42.0 % (37.0-47.0) Mean Corpuscular Volume 90 FL (80-99) Mean Corpuscular Hemoglobin 29.9 PG (27.0-31.0) Mean Corpuscular Hemoglobin Concent 33.2 G/DL (32.0-36.0) Red Cell Distribution Width 13.3 % (11.6-14.8) Platelet Count 286 K/UL (150-450) Mean Platelet Volume 8.6 FL (6.5-10.1) Neutrophils (%) (Auto) 65.8 % (45.0-75.0) Lymphocytes (%) (Auto) 27.6 % (20.0-45.0) Monocytes (%) (Auto) 4.6 % (1.0-10.0) Eosinophils (%) (Auto) 0.7 % (0.0-3.0) Basophils (%) (Auto) 1.4 % (0.0-2.0) D-Dimer 0.26 mg/L FEU (0.00-0.49) Sodium Level 140 MMOL/L (136-145) Potassium Level 3.9 MMOL/L (3.5-5.1) Chloride Level 103 MMOL/L (98-107) Carbon Dioxide Level 29 MMOL/L (21-32) Anion Gap 8 mmol/L (5-15) Blood Urea Nitrogen 14 mg/dL (7-18) Creatinine 0.9 MG/DL (0.55-1.30) Estimated Glomerular Filtration Rate > 60 mL/min (>60) Glucose Level 112 MG/DL (74-106) H Lactic Acid Level 1.00 mmol/L (0.4-2.0) Calcium Level 8.7 MG/DL (8.5-10.1) Ferritin 104 NG/ML (8-388) Total Bilirubin 0.4 MG/DL (0.2-1.0) Aspartate Amino Transferase (AST) 13 U/L (15-37) L Alanine Aminotransferase (ALT) 13 U/L (12-78) Alkaline Phosphatase 80 U/L (46-116) Lactate Dehydrogenase 228 U/L (135-225) H Troponin I 0.000 ng/mL (0.000-0.056) C-Reactive Protein, Quantitative 3.1 mg/dL (0.00-0.90) H Total Protein 7.3 G/DL (6.4-8.2) Albumin 3.6 G/DL (3.4-5.0) Globulin 3.7 g/dL Albumin/Globulin Ratio 1.0 (1.0-2.7) Urine Color Pale yellow Urine Appearance Slightly cloudy Urine pH 5 (4.5-8.0) Urine Specific [place] 1.020 (1.005-1.035) Urine Protein 2+ (NEGATIVE) H Urine Glucose (UA) Negative (NEGATIVE) Urine Ketones 1+ (NEGATIVE) H Urine Blood 5+ (NEGATIVE) H Urine Nitrite Negative (NEGATIVE) Urine Bilirubin Negative (NEGATIVE) Urine Urobilinogen Normal MG/DL (0.0-1.0) Urine Leukocyte Esterase 1+ (NEGATIVE) H Urine RBC 20-30 /HPF (0 - 2) H Urine WBC 2-4 /HPF (0 - 2) Urine Squamous Epithelial Cells Moderate /LPF (NONE/OCC) H Urine Bacteria Few /HPF (NONE) Microbiology Date/Time Source Procedure Growth Status 01/02/20 18:45 Nasopharynx SARS-CoV-2 RdRp Gene Assay - Final Complete EKG Diagnostic Results Rate: normal Rhythm: NSR ST Segments: no acute changes Rhythm Strip Diag. Results EP Interpretation: yes Rate: 60's Rhythm: NSR, no PVC's, no ectopy Chest X-Ray Diagnostic Results Chest X-Ray Diagnostic Results : Chest X-Ray Ordered: Yes # of Views/Limited/Complete: 1 View Indication: Shortness of Breath EP Interpretation: Yes Interpretation: no consolidation, no effusion, no pneumothorax, no acute cardiopulmonary disease Impression: No acute disease Electronically Signed by: Alysia Mendosa DO Last Vital Signs Date Time Temp Pulse Resp B/P (MAP) Pulse Ox O2 Delivery O2 Flow Rate FiO2 01/02/20 20:39 97.9 65 16 116/57 98 Room Air 98 Status: improved Disposition: HOME, SELF-CARE Condition: Improved Referrals: NON PHYSICIAN (PCP) Alysia Mendosa DO Jan 02, 2020 21:29
[2020-01-02] MEDS ORDERED: Ketorolac 30mg Inj IV ONE (21:30)
[2020-01-02 21:46] VITALS: BP 113/58
--- NOTE | 2020-01-03 14:58 | Diagnostic Imaging Report ---
Procedure: XRAY Chest 1v Reason for study: Reason For Exam: SOB Comparison films: 11/01/2018. FINDINGS: A single one view chest is obtained. Vascularity is normal. The lung vernon are clear bilaterally. Cardiac and mediastinal silhouette are within normal limits. CP angles are sharp. The bony thorax appear unremarkable. IMPRESSION: NO ACUTE CARDIOPULMONARY DISEASE.
== END 2020-01-02 21:46 | disposition home or self-care (01) ==
LOC: EMR 18:30
DX: S29.012A Strain of muscle and tendon of back wall of thorax, initial encounter (principal); M79.18 Myalgia, other site; X58.XXXA Exposure to other specified factors, initial encounter; Y93.9 Activity, unspecified; Y92.9 Unspecified place or not applicable; J45.909 Unspecified asthma, uncomplicated; K21.9 Gastro-esophageal reflux disease without esophagitis; Z79.899 Other long term (current) drug therapy
CPT/HCPCS: 36415; 71045; 80053; 81003; 82728; 83605; 83615; 84484; 85025; 85379; 86140; 93005; 96374; J1885; U0002; Z7502; 99283

== ENCOUNTER 2020-03-30 17:12 | Emergency (ER) | payer MEDICAID ==
[~2020-03-30] VITALS: Ht 175.3 cm; Wt 173.7 kg
[2020-03-30] MEDS ORDERED: Ketorolac 30mg Inj IV ONE (17:30)
--- NOTE | 2020-03-30 17:55 | NUR ---
ED Nurse Note: Pt walked in to ED c/o right flank onset today. Pt stated she might have kidney stones. Reports hemarturia. Denies painful urination. Pt is AOx4, calm and cooperative t care, uses her cane, VSS, on RA, afebrile on triage. Pt was placed on bed.
--- NOTE | 2020-03-30 17:56 | Emergency Room Report ---
History of Present Illness General Chief Complaint: Pain Source: Patient Present Illness HPI 54-year-old female with remote history of kidney stone in the distant past here with right flank pain and hematuria for 3 days. Patient says that she has had dull right flank pain that has been gradually worsening. Noticed blood in her urine several days ago. Patient also has fibroids and says that she frequently has vaginal bleeding but says "this is different." Has been taking Tylenol without much relief. Says she had a CT scan that showed a kidney stone several years ago. Denies fevers, chills, chest pain, palpitation, shortness of breath, abdominal pain, nausea, vomiting, diarrhea, dysuria. 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 COVID-19 Screening: Negative COVID-19 COVID-19 Testing Source: clinic Patient History Now: No Nursing Documentation-H Hx Cardiac Problems: No - Gout, Osteoporosis Hx Hypertension: No Hx Pacemaker: No Hx Asthma: Yes Hx COPD: No Hx Diabetes: No Hx Cancer: No Hx Gastrointestinal Problems: Yes - GERD Hx Dialysis: No Hx Neurological Problems: No Hx Cerebrovascular Accident: No Hx Seizures: No Review of Systems All Other Systems: negative except mentioned in HPI Physical Exam Vital Signs Date Time Temp Pulse Resp B/P (MAP) Pulse Ox O2 Delivery O2 Flow Rate FiO2 03/30/20 17:15 98.2 72 18 126/73 (90) 99 Room Air Sp02 EP Interpretation: reviewed, normal General Appearance: no apparent distress, alert, non-toxic Head: normocephalic, atraumatic Eyes: bilateral eye normal inspection, bilateral eye PERRL ENT: hearing grossly normal, normal pharynx, no angioedema, normal voice Neck: full range of motion, supple/symm/no masses Respiratory: chest non-tender, lungs clear, normal breath sounds, speaking full sentences Cardiovascular #1: regular rate, rhythm, no edema Cardiovascular #2: 2+ carotid (R), 2+ carotid (L), 2+ radial (R), 2+ radial (L), 2+ dorsalis pedis (R), 2+ dorsalis pedis (L) Gastrointestinal: normal bowel sounds, non tender, soft, non-distended, no guarding, no rebound Rectal: deferred Genitourinary: normal inspection, no CVA tenderness Musculoskeletal: back normal, normal range of motion, gait/station normal, non- tender Neurologic: alert, motor strength/tone normal, oriented x3, sensory intact, responsive, speech normal Psychiatric: judgement/insight normal, memory normal, mood/affect normal, no suicidal/homicidal ideation Lymphatic: no adenopathy Medical Decision Making Diagnostic Impression: Primary Impression: UTI (urinary tract infection) Additional Impression: Pyelonephritis ER Course CT abd pel: IMPRESSION: 1. Limited evaluation due to artifact. 2. Gallbladder is unremarkable. 3. Minimal nonspecific stranding about the perinephric spaces without hydronephrosis. 4. The appendix is unremarkable. 5. Umbilical hernia containing mesenteric fat only. 6. No bowel obstruction. 7. The bladder is underdistended. 8. Probable uterine fibroids. Laboratory Tests Test 03/30/20 17:45 White Blood Count 6.4 K/UL (4.8-10.8) Red Blood Count 4.84 M/UL (4.20-5.40) Hemoglobin 13.7 G/DL (12.0-16.0) Hematocrit 43.7 % (37.0-47.0) Mean Corpuscular Volume 90 FL (80-99) Mean Corpuscular Hemoglobin 28.2 PG (27.0-31.0) Mean Corpuscular Hemoglobin Concent 31.3 G/DL (32.0-36.0) L Red Cell Distribution Width 14.0 % (11.6-14.8) Platelet Count 293 K/UL (150-450) Mean Platelet Volume 7.3 FL (6.5-10.1) Neutrophils (%) (Auto) 60.2 % (45.0-75.0) Lymphocytes (%) (Auto) 31.3 % (20.0-45.0) Monocytes (%) (Auto) 5.8 % (1.0-10.0) Eosinophils (%) (Auto) 1.0 % (0.0-3.0) Basophils (%) (Auto) 1.6 % (0.0-2.0) Urine Color Pale yellow Urine Appearance Cloudy Urine pH 5 (4.5-8.0) Urine Specific [place] 1.020 (1.005-1.035) Urine Protein 1+ (NEGATIVE) H Urine Glucose (UA) Negative (NEGATIVE) Urine Ketones Negative (NEGATIVE) Urine Blood 5+ (NEGATIVE) H Urine Nitrite Negative (NEGATIVE) Urine Bilirubin Negative (NEGATIVE) Urine Urobilinogen Normal MG/DL (0.0-1.0) Urine Leukocyte Esterase 1+ (NEGATIVE) H Urine RBC Tntc /HPF (0 - 2) H Urine WBC 0-2 /HPF (0 - 2) Urine Squamous Epithelial Cells Moderate /LPF (NONE/OCC) H Urine Bacteria Moderate /HPF (NONE) H Sodium Level 139 MMOL/L (136-145) Potassium Level 4.2 MMOL/L (3.5-5.1) Chloride Level 104 MMOL/L (98-107) Carbon Dioxide Level 28 MMOL/L (21-32) Anion Gap 7 mmol/L (5-15) Blood Urea Nitrogen 10 mg/dL (7-18) Creatinine 0.8 MG/DL (0.55-1.30) Estimated Glomerular Filtration Rate > 60 mL/min (>60) Glucose Level 93 MG/DL (74-106) Calcium Level 9.2 MG/DL (8.5-10.1) Total Bilirubin 0.3 MG/DL (0.2-1.0) Aspartate Amino Transferase (AST) 16 U/L (15-37) Alanine Aminotransferase (ALT) 25 U/L (12-78) Alkaline Phosphatase 81 U/L (46-116) Total Protein 8.1 G/DL (6.4-8.2) Albumin 3.6 G/DL (3.4-5.0) Globulin 4.5 g/dL Albumin/Globulin Ratio 0.8 (1.0-2.7) L Lipase 197 U/L (73-393) 54-year-old female here with right flank pain and hematuria. Patient was hemodynamically stable and neurovascular tact in the emergency department. CBC, CMP unremarkable. Urinalysis did show hematuria and evidence of urinary tract infection. CT abdomen pelvis without IV contrast did not reveal any kidney stones, however did show perinephric fat stranding bilaterally worse in the right kidney. Consistent with possible pyelonephritis. Patient was given a prescription for ciprofloxacin and [place] and told to return to the emergency department any worsening symptoms or fevers or chills. She expressed understanding and was discharged. Last Vital Signs Date Time Temp Pulse Resp B/P (MAP) Pulse Ox O2 Delivery O2 Flow Rate FiO2 03/30/20 17:15 98.2 72 18 126/73 (90) 99 Room Air Scripts Hydrocodone/Acetaminophen 7.5-325* (HYDROCODON-ACETAMINOPH 7.5-325*) 1 Each Tablet 1 TAB ORAL Q4H, #10 TAB 0 Refills Prov: Huan Freeman M.D. 03/30/20 Ciprofloxacin Hcl* (CIPROFLOXACIN HCL*) 500 Mg Tablet 500 MG ORAL Q12H, #14 TAB 0 Refills Prov: Huan Freeman M.D. 03/30/20 Huan Freeman M.D. Mar 30, 2020 17:56
[2020-03-30 18:01] VITALS: BP 126/73
--- NOTE | 2020-03-30 18:02 | NUR ---
ED Nurse Note: labs sent down
[2020-03-30 18:27] LABS: ANION GAP 7 mmol/L (5-15); APPEARANCE,URINE CLOUDY; BILIRUBIN, URINE NEGATIVE (NEGATIVE); BLOOD UREA NITROGEN 10 mg/dL (7-18); CALCIUM 9.2 MG/DL (8.5-10.1); CARBON DIOXIDE 28 MMOL/L (21-32); CHLORIDE 104 MMOL/L (98-107); COLOR,URINE PALE YELLOW; CREATININE 0.8 MG/DL (0.55-1.30); GLUCOSE, URINE (UA) NEGATIVE (NEGATIVE); KETONES,URINE NEGATIVE (NEGATIVE); LEUKOCYTE ESTERASE ,URINE 1+ (NEGATIVE); NITRITE,URINE NEGATIVE (NEGATIVE); PH,URINE 5 (4.5-8.0); POTASSIUM 4.2 MMOL/L (3.5-5.1); PROTEIN,URINE 1+ (NEGATIVE); SODIUM 139 MMOL/L (136-145); UROBILINOGEN,URINE NORMAL MG/DL (0.0-1.0)
[2020-03-30 18:31] LABS: ALANINE AMINOTRANSFERASE 25 U/L (12-78); ALBUMIN 3.6 G/DL (3.4-5.0); ALBUMIN/GLOBULIN RATIO 0.8 (1.0-2.7); ALKALINE PHOSPHATASE 81 U/L (46-116); ASPARTATE AMINO TRANSFERASE 16 U/L (15-37); BILIRUBIN,TOTAL 0.3 MG/DL (0.2-1.0)
[2020-03-30 18:47] LABS: BASOPHILS % (AUTO) 1.6 % (0.0-2.0); HEMATOCRIT 43.7 % (37.0-47.0); HEMOGLOBIN 13.7 G/DL (12.0-16.0); LYMPHOCYTES % (AUTO) 31.3 % (20.0-45.0); MEAN CORPUSCULAR VOLUME 90 FL (80-99); MONOCYTES % (AUTO) 5.8 % (1.0-10.0); NEUTROPHILS % (AUTO) 60.2 % (45.0-75.0); PLATELET COUNT 293 K/UL (150-450); RED BLOOD COUNT 4.84 M/UL (4.20-5.40); WHITE BLOOD COUNT 6.4 K/UL (4.8-10.8)
--- NOTE | 2020-03-30 19:48 | Diagnostic Imaging Report ---
EXAM: CT Abdomen and Pelvis Without Intravenous Contrast CLINICAL HISTORY: Right flank pain. TECHNIQUE: Axial computed tomography images of the abdomen and pelvis without intravenous contrast. CTDI is 34.50 mGy and DLP is 1870.70 mGy-cm. One or more of the following dose reduction techniques were used: automated exposure control, adjustment of the mA and/or kV according to patient size, use of iterative reconstruction technique. COMPARISON: No previous study. FINDINGS: Limitations: Limited evaluation due to motion artifact. Lung bases: Minimal subsegmental atelectasis posteriorly at the lung bases. Pleural space: No pleural effusions. Heart: Heart is top normal in size. Mediastinum: Small hiatal hernia and probable distal esophagitis. ABDOMEN: Liver: The liver and the spleen are normal in contour. Gallbladder and bile ducts: See below. Pancreas: See below. Spleen: See above. Adrenals: The adrenal glands, the head, body, tail of the pancreas, and the gallbladder are unremarkable per Kidneys and ureters: No renal calculus or hydronephrosis. Minimal nonspecific stranding about the perinephric spaces. Stomach and bowel: Moderate quantity of stool throughout the colon without bowel obstruction. No mucosal thickening. PELVIS: Appendix: The appendix is seen on coronal image 50 and is unremarkable. Bladder: The bladder is underdistended appeared No stones. Reproductive: Bulbous uterus suggestive of fibroids. ABDOMEN and PELVIS: Intraperitoneal space: Unremarkable. No free air. No significant fluid collection. Bones/joints: Moderate degenerative disc disease of the visualized spine. Moderate to severe osteoarthritic changes about the sacroiliac joints. No spondylolysis or spondylolisthesis. No acute fracture. No dislocation. Soft tissues: 4.3 cm umbilical hernia containing mesenteric fat only. Ischiorectal fat is clean. There is extensive subcutaneous are density posterior midline soft tissues suggestive of are possible edema. Vasculature: Unremarkable. No abdominal aortic aneurysm. Lymph nodes: No pelvic or inguinal lymphadenopathy. IMPRESSION: 1. Limited evaluation due to artifact. 2. Gallbladder is unremarkable. 3. Minimal nonspecific stranding about the perinephric spaces without hydronephrosis. 4. The appendix is unremarkable. 5. Umbilical hernia containing mesenteric fat only. 6. No bowel obstruction. 7. The bladder is underdistended. 8. Probable uterine fibroids.
[2020-03-30] MEDS ORDERED: HYDROCODON-ACE1 EA16 ORAL (19:51)
[2020-03-30] MEDS ORDERED: CIPROFLOXACIN500 M2 ORAL (19:51)
[2020-03-30 20:00] VITALS: BP 130/68
--- NOTE | 2020-03-30 20:00 | NUR ---
ED Nurse Note: Pt cleared by health care Provider for discharge. DC instructions/prescription was given and explained to pt and verbalized understanding of teachings. Instructed to follow up with PCP within 2-6 days. All medical deviecs such as ID band removed. Pt is AAO x4, ambulatory and left with all personal belongings.
== END 2020-03-30 20:00 | disposition home or self-care (01) ==
LOC: EMR 17:35
DX: N39.0 Urinary tract infection, site not specified (principal); N12 Tubulo-interstitial nephritis, not specified as acute or chronic; J45.909 Unspecified asthma, uncomplicated; K21.9 Gastro-esophageal reflux disease without esophagitis; M81.0 Age-related osteoporosis without current pathological fracture; M10.9 Gout, unspecified
CPT/HCPCS: 36415; 74176; 80053; 81003; 83690; 85025; 87086; 96361; 96374; J1885; J7030; Z7502; 99284

== ENCOUNTER 2020-04-02 05:41 | Emergency (ER) | payer MEDICAID ==
[~2020-04-02] VITALS: Ht 175.3 cm; Wt 172.4 kg
[~2020-04-02 05:41] MED LIST changes: +CIPROFLOXACIN500 M2 ORAL; +HYDROCODON-ACE1 EA16 ORAL
--- NOTE | 2020-04-02 06:01 | Emergency Room Report ---
History of Present Illness General Chief Complaint: Female Urogenital Problems Source: Patient Present Illness HPI Patient is a 54-year-old female who presents for increased difficulty with urination. Recently had emergency department visit and had CT imaging performed at that time. CT did show some perinephric stranding consistent with possible pyelonephritis. A urinalysis at that time showed mixed enrrique on culture. Had not been having any vomiting or diarrhea. Had been taking Cipro for the past few days. Patient a prior history of chronic arthritis and pain. Onset 4 days ago. Reports having worsening pain. Had been taking ciprofloxacin since last v isit. Reports having some hematuria. Prior history of kidney stones. Prior history of uterine fibroids. Pain predominantly to the right flank. Sharp in nature. Allergies: Coded Allergies: No Known Allergies (Unverified , 08/08/12) COVID-19 Screening Contact w/high risk pt: No Experienced COVID-19 symptoms?: No COVID-19 Testing performed TECHNICAL LEAD: No COVID-19 Screening: Negative COVID-19 COVID-19 Testing Source: [facility] [place] Patient History Past Medical History: see triage record Now: No Reviewed Nursing Documentation: PMH: Agreed; PSxH: Agreed Nursing Documentation-PMH Hx Cardiac Problems: No - Gout, Osteoporosis Hx Hypertension: No Hx Pacemaker: No Hx Asthma: Yes Hx COPD: No Hx Diabetes: No Hx Cancer: No Hx Gastrointestinal Problems: Yes - GERD Hx Dialysis: No Hx Neurological Problems: No Hx Cerebrovascular Accident: No Hx Seizures: No Review of Systems All Other Systems: negative except mentioned in HPI Physical Exam Vital Signs Date Time Temp Pulse Resp B/P (MAP) Pulse Ox O2 Delivery O2 Flow Rate FiO2 04/02/20 05:47 97.9 96 20 164/82 (109) 99 Sp02 EP Interpretation: reviewed, normal General Appearance: normal inspection, alert, GCS 15, mild distress, obese, Chronically Ill Head: atraumatic ENT: normal ENT inspection, hearing grossly normal, normal voice Neck: normal inspection, full range of motion, supple, no bony tend Respiratory: normal inspection, lungs clear, normal breath sounds, no respiratory distress, no retraction, no wheezing Cardiovascular #1: regular rate, rhythm, no edema Gastrointestinal: normal inspection, normal bowel sounds, non tender, soft, no guarding, no hernia Genitourinary: no CVA tenderness Musculoskeletal: other - decreased ROM to back, antalgic gait Neurologic: alert, motor strength/tone normal, hedis registered nurse rn III-XII nml as tested, oriented x3, responsive, speech normal, normal inspection Psychiatric: normal inspection, judgement/insight normal, mood/affect normal Skin: no rash Medical Decision Making Diagnostic Impression: Primary Impression: Pyelonephritis Additional Impressions: UTI (urinary tract infection) Hematuria ER Course Patient presented for right flank pain. Differential diagnosis include was not limited to coronavirus infection, pyelonephritis, urinary tract infection, kidney stone, musculoskeletal back pain among others. Because of complexity of patient's case laboratory tests and imaging studies were ordered. Patient had recent CT imaging performed which showed right-sided perinephric stranding consistent with pyelonephritis. Patient was given IV fluids as well as IV antibiotics. Given patient's worsening pain patient will be hospitalized for management of pyelonephritis. Rapid coronavirus testing was negative. IMPRESSION: 1. Limited evaluation due to artifact. 2. Gallbladder is unremarkable. 3. Minimal nonspecific stranding about the perinephric spaces without hydronephrosis. 4. The appendix is unremarkable. 5. Umbilical hernia containing mesenteric fat only. 6. No bowel obstruction. 7. The bladder is underdistended. 8. Probable uterine fibroids. Patient given IV Rocephin. Patient was given Toradol for pain. Patient was discussed with Dr. Herrera who agreed to accept the patient to [facility]. Labs Laboratory Tests Test 04/02/20 06:02 04/02/20 06:20 Urine Color Pale yellow Urine Appearance Clear Urine pH 6 (4.5-8.0) Urine Specific [place] 1.010 (1.005-1.035) Urine Protein Negative (NEGATIVE) Urine Glucose (UA) Negative (NEGATIVE) Urine Ketones Negative (NEGATIVE) Urine Blood 5+ (NEGATIVE) H Urine Nitrite Negative (NEGATIVE) Urine Bilirubin Negative (NEGATIVE) Urine Urobilinogen Normal MG/DL (0.0-1.0) Urine Leukocyte Esterase Negative (NEGATIVE) Urine RBC Tntc /HPF (0 - 2) H Urine WBC 0-2 /HPF (0 - 2) Urine Squamous Epithelial Cells Moderate /LPF (NONE/OCC) H Urine Bacteria None /HPF (NONE) White Blood Count 5.4 K/UL (4.8-10.8) Red Blood Count 4.38 M/UL (4.20-5.40) Hemoglobin 12.7 G/DL (12.0-16.0) Hematocrit 39.5 % (37.0-47.0) Mean Corpuscular Volume 90 FL (80-99) Mean Corpuscular Hemoglobin 28.9 PG (27.0-31.0) Mean Corpuscular Hemoglobin Concent 32.1 G/DL (32.0-36.0) Red Cell Distribution Width 13.8 % (11.6-14.8) Platelet Count 227 K/UL (150-450) Mean Platelet Volume 7.6 FL (6.5-10.1) Neutrophils (%) (Auto) 65.5 % (45.0-75.0) Lymphocytes (%) (Auto) 28.8 % (20.0-45.0) Monocytes (%) (Auto) 4.0 % (1.0-10.0) Eosinophils (%) (Auto) 0.4 % (0.0-3.0) Basophils (%) (Auto) 1.2 % (0.0-2.0) Prothrombin Time 10.5 SEC (9.30-11.50) Prothrombin Time INR 0.9 (0.9-1.1) Activated Partial Thromboplast Time 22 SEC (23-33) L Sodium Level 140 MMOL/L (136-145) Potassium Level 3.9 MMOL/L (3.5-5.1) Chloride Level 106 MMOL/L (98-107) Carbon Dioxide Level 24 MMOL/L (21-32) Anion Gap 10 mmol/L (5-15) Blood Urea Nitrogen 10 mg/dL (7-18) Creatinine 0.7 MG/DL (0.55-1.30) Estimated Glomerular Filtration Rate > 60 mL/min (>60) Glucose Level 116 MG/DL (74-106) H Lactic Acid Level 2.00 mmol/L (0.4-2.0) Calcium Level 9.1 MG/DL (8.5-10.1) Total Bilirubin 0.3 MG/DL (0.2-1.0) Aspartate Amino Transferase (AST) 23 U/L (15-37) Alanine Aminotransferase (ALT) 23 U/L (12-78) Alkaline Phosphatase 73 U/L (46-116) Total Creatine Kinase 157 U/L (26-308) Creatine Kinase MB < 0.5 NG/ML (0.0-3.6) Creatine Kinase MB Relative Index 0.3 Troponin I 0.000 ng/mL (0.000-0.056) Total Protein 7.7 G/DL (6.4-8.2) Albumin 3.3 G/DL (3.4-5.0) L Globulin 4.4 g/dL Albumin/Globulin Ratio 0.8 (1.0-2.7) L Microbiology Date/Time Source Procedure Growth Status 04/02/20 06:49 Nasopharynx SARS-CoV-2 RdRp Gene Assay - Final Complete Last Vital Signs Date Time Temp Pulse Resp B/P (MAP) Pulse Ox O2 Delivery O2 Flow Rate FiO2 04/02/20 05:47 97.9 96 20 164/82 (109) 99 Status: unchanged Disposition: SHORT-TERM HOSP Condition: Stable Joe Granados MD Apr 02, 2020 06:01
--- NOTE | 2020-04-02 06:04 | NUR ---
ED Nurse Note: Pt walked in from home. axox4, walks with a cane. She is co of pain in her right flank. She was here a couple of days ago for the same thing but she states that the pain has gotten worse. She is able to speak in full sentances, breathing is even and unlabored. No signs of distress noted.
[2020-04-02] MEDS ORDERED: Ketorolac 30mg Inj IV ONE (06:15)
[2020-04-02] MEDS ORDERED: cefTRIAXone 2 GM in NS 110 ML IV ONE (06:15)
[2020-04-02 06:42] VITALS: BP 160/80
[2020-04-02 06:50] LABS: APPEARANCE,URINE CLEAR; BILIRUBIN, URINE NEGATIVE (NEGATIVE); COLOR,URINE PALE YELLOW; GLUCOSE, URINE (UA) NEGATIVE (NEGATIVE); KETONES,URINE NEGATIVE (NEGATIVE); LEUKOCYTE ESTERASE ,URINE NEGATIVE (NEGATIVE); NITRITE,URINE NEGATIVE (NEGATIVE); PH,URINE 6 (4.5-8.0); PROTEIN,URINE NEGATIVE (NEGATIVE); UROBILINOGEN,URINE NORMAL MG/DL (0.0-1.0)
[2020-04-02 06:51] LABS: BASOPHILS % (AUTO) 1.2 % (0.0-2.0); EOSINOPHILS % (AUTO) 0.4 % (0.0-3.0); HEMATOCRIT 39.5 % (37.0-47.0); HEMOGLOBIN 12.7 G/DL (12.0-16.0); LYMPHOCYTES % (AUTO) 28.8 % (20.0-45.0); MEAN CORPUSCULAR VOLUME 90 FL (80-99); NEUTROPHILS % (AUTO) 65.5 % (45.0-75.0); PLATELET COUNT 227 K/UL (150-450); RED BLOOD COUNT 4.38 M/UL (4.20-5.40); RED CELL DISTRIBUTION WIDTH 13.8 % (11.6-14.8); WHITE BLOOD COUNT 5.4 K/UL (4.8-10.8)
[2020-04-02 07:05] LABS: INR 0.9 (0.9-1.1)
--- NOTE | 2020-04-02 07:19 | NUR ---
ED Nurse Note: Report given to [facility] Nursing supervisor sample preparation.
[2020-04-02 07:21] LABS: ALANINE AMINOTRANSFERASE 23 U/L (12-78); ALBUMIN 3.3 G/DL (3.4-5.0); ALBUMIN/GLOBULIN RATIO 0.8 (1.0-2.7); ALKALINE PHOSPHATASE 73 U/L (46-116); ANION GAP 10 mmol/L (5-15); ASPARTATE AMINO TRANSFERASE 23 U/L (15-37); BILIRUBIN,TOTAL 0.3 MG/DL (0.2-1.0); BLOOD UREA NITROGEN 10 mg/dL (7-18); CALCIUM 9.1 MG/DL (8.5-10.1); CARBON DIOXIDE 24 MMOL/L (21-32); CHLORIDE 106 MMOL/L (98-107); CKMB < 0.5 NG/ML (0.0-3.6); CREATINE KINASE 157 U/L (26-308); CREATININE 0.7 MG/DL (0.55-1.30); POTASSIUM 3.9 MMOL/L (3.5-5.1); SODIUM 140 MMOL/L (136-145)
--- NOTE | 2020-04-02 07:34 | NUR ---
HAND-OFF: Report given to Zakiya BARRERA.
--- NOTE | 2020-04-02 08:54 | Diagnostic Imaging Report ---
Indication: Shortness of breath Technique: XRAY Chest 1v Comparison: 01/02/2020 Findings: Limited evaluation due to underpenetration, likely in part related to body habitus. Heart size and mediastinal contours are stable. No definite focal airspace consolidation is seen. No pleural effusion, pneumothorax or definite evidence to suggest pulmonary edema. No acute osseous abnormality. IMPRESSION: Limited exam due to underpenetration. Within these limitations: No definite radiographic evidence of acute cardiopulmonary disease.
[2020-04-02 09:30] VITALS: BP 130/80
--- NOTE | 2020-04-02 09:30 | NUR ---
report given to [facility] .patient was transferd with all the valubles and iv intact
== END 2020-04-02 09:30 | disposition short-term general hospital (02) ==
LOC: EMR 06:06
DX: N12 Tubulo-interstitial nephritis, not specified as acute or chronic (principal); N39.0 Urinary tract infection, site not specified; R31.9 Hematuria, unspecified; J45.909 Unspecified asthma, uncomplicated
CPT/HCPCS: 36415; 71045; 80053; 81003; 82550; 82553; 83605; 84484; 85025; 85610; 85730; 87040; 96361; 96365; 96375; J0696; J1885; J7030; U0002; Z7502; 99285